=== PATIENT | male | born 1955 | race Caucasian/White ===

== ENCOUNTER → 2018-12-16 13:17 | Outpatient (CLI) | payer OTHER, SELFPAY ==
[2018-12-16 12:46] VITALS: BMI 27.8
--- NOTE | 2018-12-16 13:20 | CT_ITS ---
STUDY: LOW DOSE CT LUNG CANCER SCREENING REASON FOR EXAM: Male, 63 years old. History of 46 years of smoking three-quarter pack per day. RADIATION DOSAGE (If Supplied By Facility): CTDIvol = ( 3.02 ) mGy, DLP = ( 106.84 ) mGycm TECHNIQUE: No contrast was administered. Low dose technique was utilized (average mAS-38 and kVp 120). 1.25 mm axial source images with a slice interval of 1.25-mm were reconstructed in lung windows. 2.5 mm axial source images with a slice interval of 2.5-mm were reconstructed in lung windows. 5.0 mm axial source images with a slice interval of 5.0-mm were reconstructed in soft tissue windows. Nodule measured using lung windows on PACS and/or independent workstation with automated measurement of minimum and maximum diameter. Nodule measurement reported as average diameter rounded to the nearest whole number. Growth is defined as an increase ins size of greater than 1.5 mm. COMPARISON: None. NODULES: No suspicious nodules are seen. Emphysema: Mild degree of emphysematous changes. Bullous changes in the posterior medial segment of the right lower lobe. Findings suggestive of focal scarring in the lingular segment of the left upper lobe. Aorta: Atherosclerotic calcification of the aortic arch. Coronary arteries: Coronary calcification. Mediastinal nodes: Small benign-appearing mediastinal lymph nodes. Other chest and abdominal findings: Degenerative changes of the thoracic spine. CT/Low Dose CT Lung Screening IMPRESSION: Lung-RADS category 2 - Continue annual screening with LDCT in 12 months. IMPORTANT NOTES FOR USE: ACR Lung-RADS Version 1.0 Assessment Categories Release Date: July 27, 2013 Category: Coded 0-4 bases on nodule(s) with highest degree of suspicion. Negative screen is defined as categories 1 and 2; a positive screen is defined as categories 3 and 4. Category 3 and 4A nodules that are unchanged on interval CT should be coded as category 2, and individuals returned to screening in 12 months. Category 4X: Category 3 or 4 nodules with additional imaging findings that increase the suspicion of lung cancer, such as spiculation, GGN that doubles in size in 1 year, enlarged lymph notes, etc. Category Modifiers: S (significant finding unrelated to lung cancer) and C (prior history of treated lung cancer) may be added to the 0-4 Lung-RADS Electronically Signed: Rajendra Persaud, at 14:08 EDT , Service support ,
== END ==
PROVIDERS: Family Provider Family Medicine; PCP Family Medicine; Referring Provider Nurse Practitioner Family; Visit Provider Nurse Practitioner Family
DX: Z12.2 Encounter for screening for malignant neoplasm of respiratory organs (principal); Z87.891 Personal history of nicotine dependence
CPT/HCPCS: G0297

== ENCOUNTER 2019-03-05 06:05 | Day surgery (SDC) | payer OTHER, SELFPAY ==
[2019-02-11 08:21] VITALS: BMI 27.8
--- NOTE | 2019-02-11 09:54 | HP_ITS ---
Intake Vital Signs 02/11/19 Body Mass Index (BMI) 27.8 02/11/19 Height 5 ft 7 in 02/11/19 Weight: 176 lb 02/11/19 Body Mass Index (BMI) 27.6 02/11/19 Blood Pressure 147/90 H 02/11/19 Blood Pressure Location Rt brachial 02/11/19 Blood Pressure Position Sitting 02/11/19 Respiratory Rate 18 02/11/19 Pulse Rate 77 02/11/19 Pulse Source Monitor 02/11/19 Temperature 98.5 F 02/11/19 Temperature Source Oral 02/11/19 Pulse Ox 95 02/11/19 Oxygen Delivery Method room air Intake Visit Reasons: Umbilical Hernia Chief Complaint: herniated navel Cyber Policy And Strategy Planner Required: No Is patient in pain?: No Allergies No Known Allergies Allergy (Verified 02/11/19 08:20) Medications jdegmylwgnd-wckatjdziug-zv-mineral#3 375 mg-300 mg-25 mg-0.5 mg tablet tab PO tab 12/10/18 [History Confirmed 02/11/19] multivitamin tablet 1 tab PO DAILY 12/10/18 [History Confirmed 02/11/19] aspirin 325 mg tablet 162 mg PO .QOD tab 12/16/18 [History Confirmed 02/11/19] PFSH Medical History Excessive sputum (Acute) GERD (gastroesophageal reflux disease) (Acute) Hearing problem (Acute) History of tinnitus (Acute) Hyperlipidemia (Acute) Chronic cough (Chronic) Surgical History History of hernia repair (Acute) Hx of tonsillectomy (Acute) Family History Mother Anemia Bowel disease Colon cancer Hyperlipidemia Father Heart disease Grandfather Diabetes Social History (Updated 02/11/19 @ 09:54 by Ralph Maharaj MD) Smoking Status: Current every day smoker tobacco type: cigarettes Tobacco: How many years used: 45 Electronic Cigarette Use: not used second hand exposure: Yes quit status: has quit before counseling given: provider counseling alcohol intake: current alcohol intake frequency: 0-2 drinks per day substance use type: does not use what type of physical activity do you participate in: walking frequency: daily HPI HPI HPI: RACHELLE LUND, is a 64 M who presents to the office today for HPI HPI Surgical H&P: Yes HPI: RACHELLE LUND, is a 64 M who presents to the office today for Umbilical hernia. The patient reports that he has had umbilical hernia for several years. He reports that it is getting larger, more painful. ROS General General: No weight change, appetite, fatigue, colon cancer, breast cancer or weakness HEENT HEENT: No difficulty swallowing, eye injury, eye surgery, swollen glands or hoarseness Endo Endocrine: No thyroid disease, diabetes mellitus, thyroid cancer, Hair loss, heat intolerance or cold intolerance Skin Skin: No rash or changing moles Breast Breast: No left breast lump, right breast lump, nipple discharge, breast pain, abnormal mammogram, abnormal US or breast enlargement Musc Musculoskeletal: Yes arthritis; no back problems, rheumatoid arthritis, gout or joint pain Cardio Cardiovascular: No murmur, pacemaker, heart disease, atrial fibrillation, high blood pressure, heart attack, heart stent, palpitations, shortness of breat with exertion or chest pain Psych Psychiatric: No depression, anxiety or hearing voices Resp Respiratory: No shortness of breath, No sleep apnea, Yes cough, No COPD, No asthma, No emphysema, No wheezing Gastro Gastrointestinal: No abdominal pain, No nausea or vomiting, No diarrhea, No constipation, No blood in stool, No acid reflux, No hemorrhoids, No ulcers, No gallbladder problem, No black,tarry stools Dane Hematologic: Yes blood thinners, No blood disorders, No bleeding, No anemia, No blood clots Neuro Neurologic: No system reviewed and no additional complaints, except as docu, No as per HPI, No abnormal walking, No abnormal hearing, No abnormal movements, No abnormal speech, No behavioral changes, No burning sensations, No confusion, No seizure-like activity, No unsteadiness, No dizziness, No localized weakness, No frequent falls, No headache(s), No lack of coordination, No loss of vision, No memory loss, No numbness, No other visual disturbances, No radiating pain, No restless legs, No sensory deficit, No fainting, No tingling, No tremor(s), No weakness, No other Exam Const General: cooperative Orientation: alert, oriented x3 Chest Breast Palpation: No nipple discharge Resp Effort & Inspection: normal respiratory effort Auscultation: clear to auscultation bilaterally Cardio Rate: regular rate Rhythm: regular rhythm Heart Sounds: no murmurs GI Inspection: non-distended Palpation: soft, hernia umbilical, nontender Assessment & Plan Problems 1. Tobacco abuse Z72.0 2. Umbilical hernia without obstruction and without gangrene K42.9 Plan The patient is a small reducible umbilical hernia. I discussed repair with him. I discussed open and laparoscopic repair. Given the size I feel that it may be small enough to fix with sutures. I discussed that if it was more than 1 cm in diameter I would repair with sutures if it is larger I would have to place a mesh. I believe it is too small to warrant laparoscopic surgery. The patient is in agreement and would like to proceed with open umbilical hernia repair. I discussed the risks of bleeding, infection, underlying bowel injury. The patient would like to proceed. Ralph Maharaj MD Pager: [facility] [address] [place] [address], [address] [place] [address] Office: Coding Level of Care Code Off vis,new,level 3 Diagnoses Tobacco abuse Z72.0 Umbilical hernia without obstruction and without gangrene K42.9 ??Obstruction and gangrene presence: without obstruction or gangrene 02/11/19 0954 <Electronically signed by Ralph olivier MD> Date _ Ralph Maharaj MD I have re-examined the patient. There are no clinical changes since date of exam.
[2019-03-05] VITALS (7 sets, daily range): BP systolic 132–157; BP diastolic 82–101; PULSE 68–80; RESP 16; TEMP 36.6–36.8; O2SAT 93–96; BMI 26.7
--- NOTE | 2019-03-05 06:11 | EKG12_ITS ---
Test Reason : PRE-OP Blood Pressure : / mmHG Vent. Rate : 069 BPM Atrial Rate : 069 BPM P-R Int : 156 ms QRS Dur : 086 ms QT Int : 412 ms P-R-T Axes : 021 059 037 degrees QTc Int : 441 ms Normal sinus rhythm Normal ECG No previous ECGs available Confirmed by LETICIA HICKEY, JACKI ([id number]), news video editor IBAN BENEDICT ([id number]) on 03/08/2019 10:36:18 AM Referred By: Ralph Maharaj Confirmed By:HUSSAIN KELLY MD
[2019-03-05 06:32] LABS: Hematocrit 43.5 % (40-54); Hemoglobin 14.7 g/dL (13.0-16.5); Mean Corp Hgb Conc 33.8 g/dL (32-36); Mean Corpuscular Hgb 30.8 pg (27.0-32.0); Mean Platelet Vol. 9.6 fl (6.2-12.0); Platelet Count 289 K/mm3 (150-450); RBC Distribution Width CV 12.7 % (11.6-14.6); RBC Distribution Width SD 42.4 fl (35.1-43.9); Red Blood Count 4.78 M/mm3 (4.6-6.2); White Blood Count 7.9 K/mm3 (4.4-11.0)
[2019-03-05] MEDS: Lactated Ringers 1,000 ML 100 ML IV (06:43)
[2019-03-05] MEDS: Cefazolin 2 GM in 0.9% Normal Saline 100 ML IV (07:28)
[2019-03-05] MEDS: Bupivacaine Mpf 0.5% 30 ML VIAL (07:56)
--- NOTE | 2019-03-05 07:58 | PCM.OPRPT ---
Problem List (1) Umbilical hernia Status: Acute Report of Operation Date of Procedure: 03/05/19 Pre-Operative Diagnosis: Umbilical hernia Post-Operative Diagnosis: Same Surgery/Procedure Performed:: Umbilical hernia repair Description of Procedure: The patient was brought back to the operating room and general anesthesia was induced. The abdomen was prepped and draped in usual sterile fashion. A curvilinear incision was marked superior to the umbilicus and the hernia was reduced. This proposed incision line was injected with lidocaine and Marcaine mixture. Next an incision was made with a scalpel and using Adson's the skin was elevated and the umbilical stalk was dissected free from the hernia sac. The hernia sac was reduced and its adhesions taken down with electrocautery until clean fascia was surrounding. The defect was less than 1 cm. Three 2-0 PDS sutures were used in an interrupted fashion to close the defect transversely. Next the umbilical stalk was tacked to the fascia using a 3-0 Vicryl suture. The cavity was irrigated and suctioned dry. The skin was closed with a running 4-0 Monocryl suture and Steri-Strips and a bandage. An umbilical cottonball and bandage were placed. Patient tolerated procedure well was brought to PACU in stable condition. Grafts/Implants Used: No mesh used - Admit VTE Documentation VTE Mechan Device Prophylaxis: SCD's
--- NOTE | 2019-03-05 08:02 | DCINST_ITS ---
Discharge Diet: Light diet - advance as tolerated Discharge Activity: Return to Normal Activity, May Not Drive - for 2-3 days or while taking narcotic pain meds., May Shower - with the bandage in place 1-2 days after surgery. Lifting Restrictions: 20 pounds for 3 weeks. Additional Activity Instructions:: Climbing stairs is fine, walking is encouraged. Sitting in bed may be uncomfortable. Sitting up using your lateral muscles (sitting up sideways) is usually more comfortable. Do not drive, work heavy equipment of sign legal documents for 24 hours. If your hernia repair was an ingunial repair, you may have scrotal swelling, an ice pack and/or athletic support can provide more comfort. Pain medications may cause nausea, you should typically eat light foods as you take your pain medications. Pain medications may also cause constipation. If you have difficulty with this, discuss with your doctor. Call your doctor if your incision/area has: Continuous Slow Oozing, Sudden Increased Bleeding, Increased Pain/ Swelling, Increased Redness, Foul Smelling Discharge Call your doctor if you observe: Fever of 101 or Higher Suture Line Care: Avoid Pulling/Pushing, Avoid Pinching/Bending Change Dressing in (Days):: 3 - Leave steri-strips for 1 week. May protect with a guaze bandaid. Cleanse incision/area with: Keep Dressing Clean & Dry Allergies/Adverse Reactions: Allergies No Known Allergies Allergy (Verified 03/05/19 06:40) Medications to take at Discharge gitzlubciho-wkdggrwkjqv-yk-mineral#3 375 mg-300 mg-25 mg-0.5 mg tablet 1 tab PO DAILY tab 12/10/18 multivitamin tablet 1 tab PO DAILY 12/10/18 aspirin 325 mg tablet 180 mg PO .QOD tab 12/16/18 Oxycodone HCl/Acetaminophen [Percocet 5/325] 1 - 2 tablet PO Q4H PRN PRN 3 Days #20 tablet 03/05/19 The following prescriptions were given: Oxycodone HCl/Acetaminophen [Percocet 5/325] 1 - 2 tablet PO Q4H PRN PRN 3 Days #20 tablet PRN Reason: Pain Transmission Status: Sent to [facility] Primary Care Physician: John Platt DO [Primary Care Provider] - Test Results: Test results from this visit will be discussed in further detail at your follow- up appointment, if applicable. Please Follow Up With: Ralph Maharaj MD When: Please call to schedule 2 week follow up appointment. [phone]
== END 2019-03-05 09:30 | disposition home or self-care (01) ==
LOC: SDC 06:08 → AC 06:08
PROVIDERS: Anesthesiology; Family Provider Family Medicine; PCP Family Medicine; Referring Provider Surgery; Visit Provider Surgery
PROC: (CPT 49585; principal; 2019-03-05 07:15)
DX: K42.9 Umbilical hernia without obstruction or gangrene (principal); F17.210 Nicotine dependence, cigarettes, uncomplicated; Z79.82 Long term (current) use of aspirin
CPT/HCPCS: 00750; 49585; 36415; 85027; 93005; J7120

== ENCOUNTER → 2019-12-22 14:27 | Outpatient (CLI) | payer OTHER, SELFPAY ==
[2019-08-04 09:39] VITALS: BMI 26.7
--- NOTE | 2019-12-22 14:27 | CT_ITS ---
STUDY: LOW DOSE CT LUNG CANCER SCREENING REASON FOR EXAM: Male, 64 years old. LUNG CANCER SCREENING. / PPD X 50 YEARS. RADIATION DOSAGE (If Supplied By Facility): CTDIvol = ( 2.55 ) mGy, DLP = ( 94.74 ) mGycm TECHNIQUE: No contrast was administered. Low dose technique was utilized (average mAS-38 and kVp 120). 1.25 mm axial source images with a slice interval of 1.25-mm were reconstructed in lung windows. 2.5 mm axial source images with a slice interval of 2.5-mm were reconstructed in lung windows. 5.0 mm axial source images with a slice interval of 5.0-mm were reconstructed in soft tissue windows. Nodule measured using lung windows on PACS and/or independent workstation with automated measurement of minimum and maximum diameter. Nodule measurement reported as average diameter rounded to the nearest whole number. Growth is defined as an increase ins size of greater than 1.5 mm. COMPARISON: Comparison is made with prior study dated 12/16/2018. NODULES: No suspicious nodules are seen. Emphysema: Stable mild degree of emphysematous changes. Bullous changes are seen in the posteromedial segment of the right lower lobe. Stable mild degree of scarring in the anterior aspect of the lingular segment of the left upper lobe. Endobronchial lesion: None Aorta: Atherosclerotic calcific plaques at the level of the aortic arch. Coronary arteries: Coronary artery calcifications. Mediastinal nodes: Small benign-appearing mediastinal lymph nodes. Other chest and abdominal findings: Degenerative changes of the thoracic spine. CT/Low Dose CT Lung Screening IMPRESSION: Lung-RADS category 2 - Continue annual screening with LDCT in 12 months. IMPORTANT NOTES FOR USE: ACR Lung-RADS Version 1.0 Assessment Categories Release Date: July 27, 2013 Category: Coded 0-4 bases on nodule(s) with highest degree of suspicion. Negative screen is defined as categories 1 and 2; a positive screen is defined as categories 3 and 4. Category 3 and 4A nodules that are unchanged on interval CT should be coded as category 2, and individuals returned to screening in 12 months. Category 4X: Category 3 or 4 nodules with additional imaging findings that increase the suspicion of lung cancer, such as spiculation, GGN that doubles in size in 1 year, enlarged lymph notes, etc. Category Modifiers: S (significant finding unrelated to lung cancer) and C (prior history of treated lung cancer) may be added to the 0-4 Lung-RADS Electronically Signed: Rajendra Persaud, at 15:19 EDT , Service support ,
== END ==
PROVIDERS: PCP Family Medicine; Referring Provider Nurse Practitioner Family; Visit Provider Nurse Practitioner Family
DX: F17.209 Nicotine dependence, unspecified, with unspecified nicotine-induced disorders (principal); Z12.2 Encounter for screening for malignant neoplasm of respiratory organs
CPT/HCPCS: G0297

== ENCOUNTER → 2021-01-18 10:24 | Outpatient (CLI) | payer MEDICARE, SELFPAY ==
--- NOTE | 2021-01-18 10:30 | RAD_ITS ---
STUDY: X-RAY - LEFT SHOULDER REASON FOR EXAM: Left shoulder pain, swelling/lump at superior aspect of the shoulder. TECHNIQUE: 4 view(s) of the shoulder. COMPARISON: None. FINDINGS: Normal glenohumeral articulation. There is mild acromioclavicular arthrosis with a small ossicle at the superior aspect of the joint. Normal acromion. Normal humeral head and visualized proximal humerus. There is a small intra-articular body at the inferior aspect of the glenoid. Normal visualized pulmonary apex. RAD/Shoulder min 2 Views IMPRESSION: Mild acromioclavicular arthrosis. Small glenohumeral intra-articular body. Electronically Signed: Rios Zacarias MD at 11:07 EDT Tel , Service support ,
== END ==
PROVIDERS: PCP Family Medicine; Referring Provider Family Medicine; Visit Provider Family Medicine
DX: M25.412 Effusion, left shoulder (principal)
CPT/HCPCS: 73030

== ENCOUNTER → 2021-01-24 13:11 | Outpatient (CLI) | payer MEDICARE, SELFPAY ==
--- NOTE | 2021-01-24 13:12 | CT_ITS ---
STUDY: LOW DOSE CT LUNG CANCER SCREENING REASON FOR EXAM: Male, 66 years old. Lung cancer screening -- 35 pack year history; current smoker;asymptomatic RADIATION DOSAGE (If Supplied By Facility): CTDIvol = ( 3.02 ) mGy, DLP = ( 117.77 ) mGycm TECHNIQUE: No contrast was administered. Low dose technique was utilized (average mAS-38 and kVp 120). 1.25 mm axial source images with a slice interval of 1.25-mm were reconstructed in lung windows. 2.5 mm axial source images with a slice interval of 2.5-mm were reconstructed in lung windows. 5.0 mm axial source images with a slice interval of 5.0-mm were reconstructed in soft tissue windows. Nodule measured using lung windows on PACS and/or independent workstation with automated measurement of minimum and maximum diameter. Nodule measurement reported as average diameter rounded to the nearest whole number. Growth is defined as an increase ins size of greater than 1.5 mm. COMPARISON: Comparison is made with prior study dated 12/22/2019. NODULES: No pulmonary nodules are seen. Emphysema: Hyperinflation. Stable minimal scarring in the anterior aspect of the lingular segment of the left upper lobe. Endobronchial lesion: None Aorta: Calcific plaques at the region of the aortic arch. Coronary arteries: Coronary artery calcification. Heart: Unremarkable Pulmonary artery: Unremarkable Mediastinal nodes: Small benign-appearing mediastinal lymph nodes. Other chest and abdominal findings: Diffuse degenerative changes of the thoracic vertebrae. CT/Low Dose CT Lung Screening IMPRESSION: Lung-RADS category 2 - Continue annual screening with LDCT in 12 months. IMPORTANT NOTES FOR USE: ACR Lung-RADS Version 1.1 Assessment Categories Release Date: 2018 Category: Coded 0-4 bases on nodule(s) with highest degree of suspicion. Negative screen is defined as categories 1 and 2; a positive screen is defined as categories 3 and 4. Category 3 and 4A nodules that are unchanged on interval CT should be coded as category 2, and individuals returned to screening in 12 months. Category 4X: Category 3 or 4 nodules with additional imaging findings that increase the suspicion of lung cancer, such as spiculation, GGN that doubles in size in 1 year, enlarged lymph notes, etc. Category Modifiers: S (significant finding unrelated to lung cancer) Electronically Signed: Rajendra Persaud MD at 13:52 EDT , Service support ,
== END ==
PROVIDERS: PCP Family Medicine; Referring Provider Nurse Practitioner Family; Visit Provider Nurse Practitioner Family
DX: F17.210 Nicotine dependence, cigarettes, uncomplicated (principal); Z12.2 Encounter for screening for malignant neoplasm of respiratory organs
CPT/HCPCS: 71271

== ENCOUNTER → 2022-10-30 | Outpatient (CLI) | payer MEDICARE, OTHER, SELFPAY ==
[2022-10-30 17:46] LABS: ALB/GLOB Ratio 1.1 RATIO (0.9-2.4); AST(SGOT) 27 U/L (15-37); Alanine Aminotransfer ALT/SGPT 45 U/L (16-61); Albumin, Serum 3.6 g/dL (3.2-5.0); Alkaline Phosphatase 81 U/L (45-117); Anion Gap 4 (5-15); BUN 17 mg/dL (7-18); BUN/Creat Ratio 15.9 RATIO (10-20); Calcium,Total 8.6 mg/dL (8.5-10.1); Chloride 107 mmol/L (98-107); Cholesterol 238 mg/dL (200); Creatinine, Serum 1.07 mg/dL (0.70-1.30); EST Glomerular Filtration Rate 73 mL/min (>60); Est Glom Filt Rate - Afr Amer 89 mL/min (>60); Globulin 3.2 g/dL (2.2-4.2); Glucose 93 mg/dL (74-106); High Density Lipoprotein 47 mg/dL; PSA,Total- Diagnostic 2.57 ng/mL (0.0-4.0); Potassium 4.4 mmol/L (3.5-5.1); Protein, Total 6.8 g/dL (6.4-8.2); Sodium Level 138 mmol/L (136-145); Triglycerides 276 mg/dL; Very Low Density Lipoprotein 55 mg/dL (5-40)
== END | disposition home or self-care (01) ==
LOC: BIMLAB 15:03
PROVIDERS: PCP Family Medicine; Visit Provider Family Medicine
DX: N40.0 Benign prostatic hyperplasia without lower urinary tract symptoms (principal); E78.5 Hyperlipidemia, unspecified
CPT/HCPCS: 36415; 80053; 80061; 84153

== ENCOUNTER → 2022-11-13 | Outpatient (CLI) | payer MEDICARE, OTHER, SELFPAY ==
--- NOTE | 2022-11-13 07:01 | CT_ITS ---
STUDY: LOW DOSE CT LUNG CANCER SCREENING REASON FOR EXAM: Male, 67 years old. SMOKER. 1/2 PPD X 52 YEARS RADIATION DOSAGE (If Supplied By Facility): CTDIvol = ( 3.02 ) mGy, DLP = ( 109.48 ) mGycm TECHNIQUE: No contrast was administered. Low dose technique was utilized (average mAS-38 and kVp 120). 1.25 mm axial source images with a slice interval of 1.25-mm were reconstructed in lung windows. 2.5 mm axial source images with a slice interval of 2.5-mm were reconstructed in lung windows. 5.0 mm axial source images with a slice interval of 5.0-mm were reconstructed in soft tissue windows. COMPARISON: Comparison is made with prior study dated January 24, 2021. NODULES: There is a new 1.6 cm x 1.2 cm nodule in the medial aspect of the left lung apex as seen on axial image #23 and coronal image #143. Emphysema: Linear scarring in the anterior medial aspect of the left upper lobe. Hyperinflation. Endobronchial lesion: None Aorta: Mild atherosclerotic plaque formation of the aortic arch. CORONARY ARTERIES: Coronary artery calcification is seen. Heart: Unremarkable. Pulmonary artery: Unremarkable. Mediastinal nodes: Small benign-appearing mediastinal lymph nodes. Other chest and abdominal findings: CT/Low Dose CT Lung Screening IMPRESSION: Lung-RADS category 4A - Screening at 3 months with LDCT or evaluation with PET/CT may be used. IMPORTANT NOTES FOR USE: ACR Lung-RADS Version 1.1 Assessment Categories Release Date: 2018 Category: Coded 0-4 bases on nodule(s) with highest degree of suspicion. Negative screen is defined as categories 1 and 2; a positive screen is defined as categories 3 and 4. Category 3 and 4A nodules that are unchanged on interval CT should be coded as category 2, and individuals returned to screening in 12 months. Category 4X: Category 3 or 4 nodules with additional imaging findings that increase the suspicion of lung cancer, such as spiculation, GGN that doubles in size in 1 year, enlarged lymph notes, etc. Category Modifiers: S (significant finding unrelated to lung cancer) Electronically Signed: Rajendra Persaud MD at 15:15 EDT ,
== END | disposition home or self-care (01) ==
PROVIDERS: PCP Family Medicine; Referring Provider Family Medicine; Visit Provider Family Medicine
DX: Z12.2 Encounter for screening for malignant neoplasm of respiratory organs (principal); Z87.891 Personal history of nicotine dependence
CPT/HCPCS: 71271

== ENCOUNTER → 2022-12-14 | Outpatient (CLI) | payer MEDICARE, OTHER, SELFPAY ==
[2022-12-14 17:57] LABS: Bacteria 0 SEEN /hpf (None Seen); Mucous, Urine 0 SEEN /hpf (<or=2+); Red Blood Cells-Urine 0 SEEN /hpf (0-5); Squamous Epithelial Cells - UA 0 SEEN /hpf (0-5); White Blood Cells 0 SEEN /hpf (0-5)
[2022-12-14 18:19] LABS: Color, Urine Yellow (Yellow); Glucose, Dipstick Normal (Normal); Ketone-Dipstick Negative (Negative); Leukocyte Esterase-Dipstick Negative /ul (Negative); Nitrite-Dipstick Negative (Negative); Occult Blood-Urine 10 /ul (Negative); Protein-Dipstick 30 mg/dl (Negative); Specific Gravity, Urine 1.015 (1.002-1.030); Urine Bilirubin Dipstick Negative (Negative); Urine Clarity Clear (Clear); Urine Urobilinogen Normal (Normal)
== END | disposition home or self-care (01) ==
PROVIDERS: PCP Family Medicine; Visit Provider Physician Assistant Surgical
DX: R30.0 Dysuria (principal)
CPT/HCPCS: 81001; 87086; 87088

== ENCOUNTER → 2022-12-26 | Outpatient (CLI) | payer MEDICARE, OTHER, SELFPAY ==
[2022-12-26 14:50] LABS: Bacteria 0 SEEN /hpf (None Seen); Mucous, Urine 0 SEEN /hpf (<or=2+); Red Blood Cells-Urine 0 SEEN /hpf (0-5); Squamous Epithelial Cells - UA 0 SEEN /hpf (0-5); White Blood Cells 0 SEEN /hpf (0-5)
[2022-12-26 16:57] LABS: Color, Urine Yellow (Yellow); Glucose, Dipstick Normal (Normal); Ketone-Dipstick Negative (Negative); Leukocyte Esterase-Dipstick Negative /ul (Negative); Nitrite-Dipstick Negative (Negative); Occult Blood-Urine Negative /ul (Negative); Protein-Dipstick Negative (Negative); Urine Bilirubin Dipstick Negative (Negative); Urine Clarity Clear (Clear); Urine Urobilinogen Normal (Normal)
== END | disposition home or self-care (01) ==
LOC: LABSPEC 14:49
PROVIDERS: PCP Family Medicine; Referring Provider Family Medicine; Visit Provider Family Medicine
DX: N39.0 Urinary tract infection, site not specified (principal); A49.9 Bacterial infection, unspecified
CPT/HCPCS: 81001

== ENCOUNTER → 2023-01-05 | Outpatient (CLI) | payer MEDICARE, OTHER, SELFPAY ==
--- NOTE | 2023-01-05 11:15 | US_ITS ---
INDICATION: air in the urine EXAMINATION: Ultrasound US Kidney(s) complete (eg, kidneys and bladder) TECHNIQUE: Pascual scale and color doppler images were obtained of the kidneys. COMPARISON: No comparison imaging received FINDINGS: RIGHT KIDNEY: Right kidney measures 11 x 4.3 x 5.4 cm with cortical thickness of 1.7 cm. There is no hydronephrosis. No shadowing calculus, focal lesion or perinephric collection demonstrated. LEFT KIDNEY: Left kidney measures 10 x 5.7 x 5.4 cm with cortical thickness of 2.2 cm. There is no hydronephrosis. Anechoic, partially exophytic left renal cyst measures 3.6 x 2.8 x 2.9 cm. No shadowing calculus or perinephric collection demonstrated. URINARY BLADDER: Unremarkable with bilateral ureteral jets visualized. Prevoid urinary bladder volume 440 mL with mild residual post void of 19 mL. No intraluminal filling defects or significant bladder wall thickening. US/Kidney and Bladder IMPRESSION: Simple appearing 3.6 cm left renal cyst. Otherwise, no acute findings. Electronically Signed: Lefty Pretty MD at 1:06 EDT ,
== END | disposition home or self-care (01) ==
LOC: US 11:14
PROVIDERS: PCP Family Medicine; Referring Provider Family Medicine; Visit Provider Family Medicine
DX: R93.89 Abnormal findings on diagnostic imaging of other specified body structures (principal)
CPT/HCPCS: 76770

== ENCOUNTER → 2023-01-15 | Outpatient (CLI) | payer MEDICARE, OTHER, SELFPAY | END | disposition home or self-care (01) | LOC: LABSPEC 16:34 | PROVIDERS: PCP Family Medicine; Referring Provider Urology; Visit Provider Urology | DX: N30.01 Acute cystitis with hematuria (principal) | CPT/HCPCS: 87086; 87088; 87186 ==

== ENCOUNTER → 2023-01-25 | Outpatient (CLI) | payer MEDICARE, OTHER, SELFPAY ==
--- NOTE | 2023-01-25 08:31 | CT_ITS ---
STUDY: CT ABDOMEN AND PELVIS WITH AND WITHOUT CONTRAST REASON FOR EXAM: Male, 68 years old. GROSS HEMATURIA RADIATION DOSAGE (If Supplied By Facility): CTDIvol = ( 16.61 ) mGy, DLP = ( 2486.80 ) mGycm TECHNIQUE: Transaxial images were obtained from the dome of the diaphragm to the symphysis pubis without oral contrast. IV 100mL Isovue-[id number] was administered. Sagittal and coronal images were reconstructed. Study was performed first without IV contrast and with IV contrast and delayed images also obtained Individualized dose optimization techniques were used for this CT. COMPARISON: None. FINDINGS: The visualized lung bases are unremarkable. The visualized portions of the heart are within normal limits. Liver is unremarkable aside from scattered subcentimeter simple cysts. Normal gallbladder and extrahepatic biliary system. Normal spleen. Normal pancreas. Normal bilateral adrenal glands. No obstructive uropathy, or suspicious solid renal lesion, there is a simple left renal cysts measuring 3.5 x 1.5 cm. No specific follow-up needed. Normal visualized stomach. Normal small intestine. Scattered colonic diverticula, particularly in the sigmoid colon without CT evidence of acute diverticulitis. However, an underlying lesion within the sigmoid cannot be completely excluded. The appendix is visualized and appears normal. Appendix seen on coronal reconstructed image 56, series 601 There is diffuse atherosclerotic calcification of the abdominal aorta, without a demonstrated aneurysm. Normal inferior vena cava. Normal retroperitoneum. Bladder distends normally, there is air within the bladder which may be due to recent catheterization. There is also subtle pericystic inflammatory stranding suggesting cystitis may be present. Normal abdominal wall. There are diffuse degenerative changes of the visualized lumbar spine, and pelvis. CT/CT Abd/Pelvis W/WO Contrast IMPRESSION: Subtle inflammatory changes around the periphery of the bladder suggesting cystitis. Please correlate with urinalysis No obstructive uropathy or suspicious solid renal lesion, there is a simple 3.5 cm left renal cyst. No specific follow-up needed Colonic diverticula, vertically in the sigmoid colon and underlying lesion cannot be excluded. No CT evidence of acute diverticulitis Scattered simple hepatic cysts, no specific follow-up needed Electronically Signed: Cj Pacheco MD at 14:59 EDT ,
[2023-01-25 08:55] LABS: CREATININE FINGERSTICK 1.4 mg/dL (0.70-1.30)
== END | disposition home or self-care (01) ==
LOC: CT 08:30
PROVIDERS: PCP Family Medicine; Referring Provider Urology; Visit Provider Urology
DX: R31.0 Gross hematuria (principal)
CPT/HCPCS: 74178; Q9967

== ENCOUNTER → 2023-02-14 | Outpatient (CLI) | payer MEDICARE, OTHER, SELFPAY ==
--- NOTE | 2023-02-14 08:20 | CT_ITS ---
STUDY: CT CHEST WITHOUT CONTRAST REASON FOR EXAM: Male, 68 years old. Nodule in the chest RADIATION DOSAGE (If Supplied By Facility): CTDIvol = ( 3.02 ) mGy, DLP = ( 110.98 ) mGycm TECHNIQUE: Transaxial imaging was performed without the administration of intravenous contrast material. Multiplanar coronal and sagittal images were reformatted. Individualized dose optimization techniques were used for this CT. COMPARISON: Comparison is made with prior study dated November 13, 2022. FINDINGS: CHEST The lungs are normal. Previously seen left apical nodule is not seen at this time. There is no demonstrated pleural abnormality. There are calcifications of the coronary arteries. There are small lymph nodes within the mediastinum, which are normal in size and morphology most compatible with reactive lymph hyperplasia. Normal hilar regions. Normal unenhanced pulmonary arteries. Normal aorta arch and descending thoracic aorta. There are multi-level degenerative changes of the thoracic spine. There is no demonstrated abnormality of the visualized upper abdomen. CT/Chest without Contrast IMPRESSION: The previously seen left apical nodule is not seen at this time. Electronically Signed: Rajendra Persaud MD at 9:47 EST ,
== END | disposition home or self-care (01) ==
LOC: CT 08:20
PROVIDERS: PCP Family Medicine; Referring Provider Family Medicine; Visit Provider Family Medicine
DX: F17.209 Nicotine dependence, unspecified, with unspecified nicotine-induced disorders (principal)
CPT/HCPCS: 71250

== ENCOUNTER → 2023-11-04 | Outpatient (CLI) | payer MEDICARE, OTHER, SELFPAY ==
--- NOTE | 2023-11-04 07:45 | RAD_ITS ---
STUDY: X-RAY - ORBITS REASON FOR EXAM: Male, 68 years old. HX METAL TO EYE ,,PRE MRI TECHNIQUE: 2 view(s) of the orbits were obtained. COMPARISON: None. FINDINGS: Normal bilateral orbits without a metallic orbital foreign body. Normal visualized facial bones. Normal paranasal sinuses. The soft tissue structures are unremarkable. RAD/Orbits for Foreign Body IMPRESSION: No demonstrated metallic orbital foreign body. The patient is cleared for an MRI examination. Electronically Signed: Rajendra Persaud MD at 9:07 EDT ,
--- NOTE | 2023-11-04 08:00 | MRI_ITS ---
STUDY: MRI LUMBAR SPINE WITHOUT CONTRAST REASON FOR EXAM: Male, 68 years old. SPONDYLOSIS TECHNIQUE: Standardized fat and water weighted pulse sequences were obtained in the sagittal and axial planes. COMPARISON: X-ray 10/29/2023 FINDINGS: T12-L1: Normal endplates. Normal disc height, hydration and morphology. Normal bilateral facet joints. Normal central canal and bilateral lateral recesses. Normal bilateral intervertebral neural foramina. Normal lumbar lordosis. There is no substantial scoliosis. Normal conus medullaris that terminates at the T12/L1. L1-2: Mild bilobed disc protrusion produces mild spinal stenosis and mild bilateral neural foraminal stenosis. L2-3: Mild bilobed disc protrusion produces mild spinal stenosis and mild bilateral neural foraminal stenosis. L3-4: Normal endplates. Normal disc height, hydration and morphology. Normal bilateral facet joints. Normal central canal and bilateral lateral recesses. Normal bilateral intervertebral neural foramina. L4-5: Mild bilateral facet hypertrophy and ligament flavum hypertrophy. Moderate broad disc protrusion produces moderate spinal stenosis with moderate bilateral lateral recess stenosis with abutment of the L5 nerve roots bilaterally and mild bilateral neural foraminal stenosis. Furthermore, there is a superimposed superiorly extending right paracentral disc extrusion contributing to right lateral recess stenosis. L5-S1: Mild bilateral facet hypertrophy and ligament flavum hypertrophy. 5 mm retrolisthesis of L5 on S1 with a mild broad disc protrusion produces moderate spinal stenosis and moderate bilateral neural foraminal stenosis with abutment of the exiting L5 nerve roots bilaterally. Normal visualized sacral ala. Normal visualized paraspinous soft tissue structures. MRI/Spine Lumbar (Routine) IMPRESSION: Multilevel degenerative changes, as described above. Electronically Signed: Ronald Cotton MD at 9:24 EDT ,
== END | disposition home or self-care (01) ==
PROVIDERS: PCP Family Medicine; Referring Provider Anesthesiology Pain Medicine; Visit Provider Anesthesiology Pain Medicine
DX: M47.16 Other spondylosis with myelopathy, lumbar region (principal)
CPT/HCPCS: 70030; 72148

== ENCOUNTER 2023-11-20 08:00 | Outpatient (RCR) | payer MEDICARE, OTHER, SELFPAY ==
--- NOTE | 2023-11-18 08:59 | HP.PTEVAL_ITS ---
Patient's Visit Information Visit Information Visit Information: RACHELLE LUND is a 68 year old M referred to Physical Therapy by Dr. Micheline Mahan MD with a diagnosis of Back pain/leg pain. Date of Evaluation: 11/18/23 Physical Therapist: Shashi Morrell, DPT, OCS, CSCS Visit Plan Frequency: 2x /Week Duration: 4-6 Weeks Plan: 2x/week for 3-6 weeks for 1. R hip mobs belted adn distraction adn PROM 2. teach and progress hip strength, core strength, and LB ROM for senior living HEP management with pics each session. work on hip extension with gait R. Teach for HEP: quad stretech 30 5x and SLR hip extension 3x10 dailys and hip abd ROM10x and skfc 10x 2x/day Subjective Subjective: PCP sent to [facility] for R hip pain who sent to [facility] for pain in R LB and hip. Got an injection in his back to help see what is back vs hip and it helped 80% 3 weeks ago. [facility] has ordered MRI and will f/u with him regarding that MRI. Wants to put MYA off until april if possible and R leg is smaller vs. R. Has lateral hip pain and cannot run. Has had problems with hip for 10 yrs and worse 5 months ago. has LBP in r upper buttock and has bone spurs and DDD in LB. Sleep is interrupted until injection but no longer. Retired from factory work. Retired 2012. Hobbies: hunting /fishing, yard work and he can do all of them but not as much as he used. to. basic ADLs: all I but hard to use R leg lifting to put socks on Pain R LB: Pain Intensity (Out of 10): 0 Pain Intensity Range: 0 and 5 R lateral leg and hip: Pain Intensity (Out of 10): 2 Pain Intensity Range: 0 and 3 Comment: worse with use worse with use.: Pain Intensity (Out of 10): 0 Objective Objective: R antalgia in gait avoiding hip extension. trasnfers I, steps reciprocal but pain R descending hip laterally. R hip aROM very limited in rotations vs L and painful 40 R er and 50 L, IR 5 R adn 10 L. flexion 100 R and 110 L LB AROM is mod limited in ext and flexion and SB, some discomfort with R SB only slightly. knee and ankle AROM WFL. Tightness obvious in R quad and psoas. Ext Hip ROM limited to 5 and L 15. R quad atrophied compared to L. hip strength rotation 3+ R and 4- L, flexion 4- B, extension 3+ R and 4- L, abduction 3+ B. knee adn ankle strengtrh 4+ B. + R hip scour adn JULIÁN and FADDIR. - SLump and - SLR today Balance/Special Test Scores Lower Extremity Functional Score: 44 Goals Goal 1:: I appropriate hip and core strength adn LB ROM and hip stretching to manage OA Goal Time Frame: 4-6 Weeks Goal 2:: Pain in buttock abolished and lateral hip 505 better to 2/10 at worst Goal Time Frame: 4-6 Weeks Goal 3:: walk without antalgia Goal Time Frame: 4-6 Weeks Goal 4:: LEFS 50 Goal Time Frame: 4-6 Weeks Rehabilitation Potential Physical Therapy Diagnosis: R hip and LB stiffness and pain limiting comfortable funciton Rehabilitation Potential: Fair Anticipated Interventions Text: Thank you for the opportunity to evaluate your patient. For Medicare and Medicare HMO plans, please review the plan of care and approve it. It will need to be FAXED BACK to us at [phone] for Medicare purposes. For Medicare only, by signing this I certify the plan of care. Please let me know if there are questions or concerns regarding this plan of care. Physician Signature: Date:
--- NOTE | 2024-01-10 07:16 | HP.PT.NRP ---
Patient Information Patient Information: RACHELLE LUND was seen in my office for initial evaluation on 11/18/23. The following Plan of Care was established for this patient: POC Established Initial Frequency: 2x /Week Initial Duration: 4-6 Weeks Last Seen Last Seen: This patient was last seen in our office 11/20/23. Pertinent comments regarding their Physical therapy will appear below: Pt seen two visits of POC but did not schedule or attend any further visits. At this point, it has been over 6 weeks and i will discontinue due to nonattendance. At this point I will be discontinuing this patient from physical therapy. I would be happy to see this patient again in the future if found appropriate by the physician. Thank you! Shashi Morrell, DPT, OCS, CSCS Balance/Gait/Functional tests Balance/Special Test Scores Lower Extremity Functional Score: 44
== END 2023-11-20 19:00 | disposition home or self-care (01) ==
LOC: PT 08:00
PROVIDERS: PCP Family Medicine; Referring Provider Anesthesiology Pain Medicine; Visit Provider Anesthesiology Pain Medicine
DX: M54.9 Dorsalgia, unspecified (principal); M79.606 Pain in leg, unspecified
CPT/HCPCS: 97110; 97140; 97161

== ENCOUNTER → 2024-01-21 | Outpatient (CLI) | payer MEDICARE, SELFPAY ==
--- NOTE | 2024-01-21 13:40 | CT_ITS ---
EXAM: CT CHEST, LUNG CANCER SCREENING WITHOUT INTRAVENOUS CONTRAST CLINICAL INDICATION: Lung cancer screening -- and gt;20 pk yr hx;current smoker;asymptomatic TECHNIQUE: Helically acquired images were obtained of the chest without intravenous contrast using low dose (LDCT) lung cancer screening protocol. This CT exam was performed using one or more of the following dose reduction techniques: automated exposure control, adjustment of the mA and/or kV according to patient size, and/or use of iterative reconstruction technique. COMPARISON: CT Lung Cancer Screening dated 11/13/2022 FINDINGS: LUNGS AND PLEURAL SPACES: No evidence of a lung mass or suspicious pulmonary nodule. Stable localized thickening along the left major fissure. No pleural effusion or thickening. No pneumothorax. HEART: Normal. No pericardial effusion. Normal heart size. Mild coronary artery calcification. MEDIASTINUM: Normal. No mediastinal or hilar adenopathy. Esophagus is unremarkable. No hiatal hernia. THYROID: Normal. No thyroid nodules or calcification. BONES/JOINTS: No suspicious lytic or blastic abnormality. VASCULATURE: No aortic aneurysm. LYMPH NODES: Normal. No enlarged lymph nodes. CT/Low Dose CT Lung Screening IMPRESSION: No evidence of a lung mass or suspicious pulmonary nodule. No interval change. Lung-RADS score: 1 - Negative. Recommend continued annual screening with a low-dose CT (LDCT) in 12 months. Electronically Signed: Shay Hay MD at 17:01 EDT ,
== END | disposition home or self-care (01) ==
LOC: CT 13:40
PROVIDERS: PCP Family Medicine; Referring Provider Nurse Practitioner Family; Visit Provider Nurse Practitioner Family
DX: Z12.2 Encounter for screening for malignant neoplasm of respiratory organs (principal); Z87.891 Personal history of nicotine dependence
CPT/HCPCS: 71271

== ENCOUNTER → 2024-04-13 | Outpatient (CLI) | payer MEDICARE, SELFPAY ==
--- NOTE | 2024-04-13 11:38 | RAD_ITS ---
STUDY: X-RAY - RIGHT KNEE REASON FOR EXAM: Male, 69 years old. RIGHT KNEE PAIN TECHNIQUE: 2 views of the right knee. COMPARISON: None. FINDINGS: Normal visualized distal femur. Normal visualized proximal tibia and fibula. Normal proximal tibiofibular articulation. There is no demonstrated fracture. Normal medial femorotibial compartment. Normal lateral femorotibial compartment. Normal patellofemoral articulation. There is a tiny joint effusion. There are mild atherosclerotic calcifications. RAD/Knee 1 or 2 Views IMPRESSION: Tiny joint effusion. No demonstrated fracture. Electronically Signed: Reji Velasquez MD at 15:50 EST ,
== END | disposition home or self-care (01) ==
PROVIDERS: PCP Family Medicine; Referring Provider Anesthesiology Pain Medicine; Visit Provider Anesthesiology Pain Medicine
DX: M17.11 Unilateral primary osteoarthritis, right knee (principal)
CPT/HCPCS: 73560

== ENCOUNTER → 2024-05-27 | Outpatient (CLI) | payer MEDICARE, SELFPAY ==
[2024-05-27 13:04] LABS: ALB/GLOB Ratio 1.5 RATIO (0.9-2.4); AST(SGOT) 24 U/L (<=37); Alanine Aminotransfer ALT/SGPT 16 U/L (<=46); Albumin, Serum 4.3 g/dL (3.4-4.8); Alkaline Phosphatase 84 U/L (40-129); Anion Gap 12 (5-15); BUN 17 mg/dL (4-19); BUN/Creat Ratio 18.7 RATIO (10-20); Calcium 9.6 mg/dL (7.6-11.0); Carbon Dioxide 23.7 mmol/L (22.0-29.0); Chloride 102 mmol/L (96-108); Cholesterol 258 mg/dL (<=200); Creatinine, Serum 0.9 mg/dL (0.8-1.3); EST Glomerular Filtration Rate 90 (>60); Globulin 2.9 g/dL (2.2-4.2); Glucose 94 mg/dL (70-99); High Density Lipoprotein 40 mg/dL; Low Density Lipoprotein Calc. 189 mg/dL; Potassium 4.4 mmol/L (3.3-5.1); Protein, Total 7.2 g/dL (5.9-8.4); Sodium Level 138 mmol/L (133-145); Total Bilirubin 0.73 mg/dL (0.00-1.30); Triglycerides 147 mg/dL; Very Low Density Lipoprotein 29 mg/dL (5-40)
== END | disposition home or self-care (01) ==
LOC: BIMLAB 09:00
PROVIDERS: PCP Family Medicine; Referring Provider Family Medicine; Visit Provider Family Medicine
DX: E78.5 Hyperlipidemia, unspecified (principal)
CPT/HCPCS: 36415; 80053; 80061

== ENCOUNTER → 2025-02-16 | Outpatient (CLI) | payer MEDICARE, SELFPAY ==
--- NOTE | 2025-02-16 12:43 | CT_ITS ---
PROCEDURE: LOW DOSE CT LUNG SCREENING 02/16/2025 REASON FOR EXAM: LUNG CANCER SCREENING Patient has smoked half a pack per day for 50 years. Cough. TECHNIQUE: Procedure Code: [id number] Modality: CT Procedure: LOW DOSE CT LUNG SCREENING Coronal and Sagittal reconstruction series were provided. One or more dose reduction techniques were used (e.g., Automated exposure control, adjustment of the mA and/or kV according to patient size, use of iterative reconstruction technique). REFERENCE LINK: [email or web address] Lung-RADS RADIATION DOSE SUMMARY: CTDlvol: 3.02 mGy DLP: 115.88 mGycm COMPARISON: January 21, 2024. FINDINGS: PULMONARY NODULES: (Only nodules >3mm are reported) Nodules described below are on series 1 unless otherwise specified. Pulmonary Nodules: No suspicious pulmonary nodules are seen. Hardware:None Lymph Nodes:No abnormal lymph nodes are present. Heart and Vasculature:The heart is nonenlarged. Coronary Artery Calcifications: Present Lungs and Airways: Mild emphysematous changes are present. Pleura:No pleural effusion. Upper Abdomen:Unremarkable Bones:Degenerative changes of the thoracic spine. CT/Low Dose CT Lung Screening IMPRESSION: No abnormal pulmonary nodules are seen. Hyperinflation and mild degree of COPD. Coronary artery calcification (CAC) is is present Lung-RADS Category: 2 BENIGN (BASED ON IMAGING FEATURES OR INDOLENT BEHAVIOR). RECOMMEND 12-MONTH SCREENING LDCT. Other Significant Findings: Reading Location: [id number]
--- OUTSIDE RECORDS SUMMARY | 2025-02-16 16:40 | XMS RPT_ITS | CCD ---
Author Organization [facility] CliniSyar Care Team Providers Care Director Nurses' Registry Name Role Phone ANGELICA GREENBERG (PILOT CAN ROUTER) Unavailable Unavailable ANGELICA GREENBERG (PILOT CAN ROUTER) Unavailable Unavailable Dr. John Platt Primary Care Provider [phone] Dr. John Platt Attending Provider [phone] Dr. John Platt Referring Provider KEVIN Meadows Attending Provider Unavailable DYLAN Moffett Attending Provider DYLAN Moffett Attending Provider [phone] John Platt Primary Care Provider [phone] Dr. John Platt Attending Provider [phone] John Platt Referring Provider [phone] KEVIN Meadows Attending Provider Unavailable DYLAN Moffett Attending Provider Dr. John Platt DO Primary Care Provider Dr. John Platt DO Referring Provider [phone] Dr. Enoc Davis DO Attending Provider Dr. Skip Friedman MD Attending Provider Dr. Micheline Mahan MD Attending Provider [phone] Micheline Mahan MD Referring Provider Dr. John Platt DO Attending Provider John Platt Primary Care Unavailable Irlanda PROOFING MACHINE OPERATOR, Blanca Attending Unavailable Irlanda PROOFING MACHINE OPERATOR, Blanca Referring Unavailable John Platt Referring Unavailable Enoc Davis Attending Unavailable John Platt Primary Care Unavailable Brown, John R Primary Care Unavailable Brown, John R Attending Unavailable Brown, John R Referring Unavailable Brown, John R Primary Care Unavailable Skip Friedman Attending Unavailable Brown, John R Referring Unavailable Brown, John R Primary Care Unavailable Brown, John R Attending Unavailable Brown, John R Referring Unavailable Brown, John R Primary Care Unavailable Micheline Mahan Attending Unavailable Micheline Mahan Referring Unavailable Medications Current Medications Medication Drug Class(es) Dates Sig (Normalized) Sig (Original) aspirin 325 mg oral tablet (10 sources) Platelet Aggregation Inhibitor, Nonsteroidal Anti-inflammatory Drug Start: 03-31-2024 take 0.5 tablet by mouth every other day Aspirin 325 mg tablet Active 180 mg PO .QOD March 31, 2024 1:29pm 1/2 tablet every other day Start: 12-16-2018 End: 03-31-2024 Aspirin 325 mg tablet Discon tinued 180 mg PO .QOD December 16, 2018 12:00am March 31, 2024 1:30pm Start: 12-16-2018 take 180 mg by mouth every other day Aspirin Active 180 MG PO .QOD December 15, 2018 11:00pm Pgicwzimqhd-Taisahkiw-Vo-Min 3 068-219-04-0.5 mg tablet (1 source) Start: 12-10-2018 Gmkfivhvubx-Msviekxxz-Kz-Min 3 886-401-28-0.5 mg tablet Active 1 {tbl} PO DAILY December 10, 2018 12:00am rksffmyasvy-hlnlpmfurwn-eu-m iner al#3 375 mg-300 mg-25 mg-0.5 mg tablet (8 sources) Start: 12-10-2018 take 1 tablet by mouth once daily fnohxdizxgv-jeoemdioztt-ya-mine ral#3 375 mg-300 mg-25 mg-0.5 mg tablet Active 1 TABLET PO DAILY December 09, 2018 11:00pm Start: 12-10-2018 take 1 tablet by mouth once daily pkqjpflhpwr-ondwqrnrkec-dx-mineral#3 375 mg-300 mg-25 mg-0.5 mg tablet Active 1 TABLET PO DAILY December 10, 2018 12:00am meloxicam 15 mg oral tablet (11 sources) Nonsteroidal Anti-inflammatory Drug Start: 05-27-2024 take 1 tablet by mouth once daily Meloxicam 15 mg tablet Active 15 mg PO DAILY May 27, 2024 9:57am Start: 09-17-2023 End: 03-31-2024 take 1 tablet by mouth once daily Meloxicam 15 mg tablet Discontinued 15 mg PO DAILY September 17, 2023 12:00am March 31, 2024 1:29pm Start: 01-18-2021 End: 10-30-2022 take 1 tablet by mouth once daily Meloxicam (Mobic) 15 mg tablet Discontinued 15 mg PO DAILY January 18, 2021 12:00am October 30, 2022 2:39pm Multivitamin preparation (8 sources) Start: 12-10-2018 take 1 tablet by mouth once daily Multivitamin Active 1 TABLET PO DAILY December 09, 2018 11:00pm Start: 12-10-2018 take 1 tablet by peyman th once daily Multivitamin Active 1 TABLET PO DAILY December 10, 2018 12:00am Multivitamin tablet (1 source) Start: 12-10-2018 Multivitamin t ablet Active 1 {tbl} PO DAILY December 10, 2018 12:00am Turmeric Root Extract 500 mg tablet (1 source) Start: 05-27-2024 take 1 tablet by mouth once daily Turmeric Root Extract 500 mg tablet Active 500 mg PO daily May 27, 2024 1:00am Completed/Discontinued Medications Medication Drug Class(es) Dates Sig (Normalized) Sig (Original) acetaminophen 325 mg / oxyCODONE hydrochloride 5 mg oral tablet (9 sources) Opioid Agonist Start: 03-05-2019 End: 03-18-2019 Oxycodone-Acetamino phen 1 TABLET tablet Discontinued 1 - 2 {tbl} PO EVERY 4 HOURS NEEDED as needed for Pain 18 06March 05, 2019 March 07, 2019 1:00am March 18, 2019 1:09am Start: 03-05-2019 End: 03-18-2019 take 1 tablet by mouth every four hours as needed Oxycodone-Acetaminophen Discontinued 1 - 2 TABLET PO EVERY 4 HOURS NEEDED 18 06March 05, 2019 March 18, 2019 12:09am ciprofloxacin 500 mg oral tablet (7 sources) Quinolone Antimicrobial Start: 12-14-2022 End: 12-19-2022 take 1 tablet by mouth twice daily Ciprofloxacin Hcl 500 mg tablet Discontinued 500 mg PO TWICE A DAY 01 03December 14, 2022 12:00am December 18, 2022 12:00am Christie 20th, 2023 12:06am doxycycline hyclate 100 mg oral capsule (10 sources) Tetracycline-class Drug Start: 06-05-2023 End: 06-06-2023 take 2 capsules by mouth once Doxycycline Hyclate 100 mg capsule Discontinued 200 mg PO ONCE 2 1 June 05, 2023 1:00am June 05, 2023 1:00am June 06, 2023 1:05am Start: 08-04-2019 End: 01-18-2021 take 1 tablet by mouth twice daily Doxycycline Hyclate 100 mg tablet Discontinued 100 mg PO TWICE A DAY August 04, 2019 12:00am January 18, 2021 9:02am red yeast rice 600 mg oral capsule (9 sources) Start: 10-30-2022 End: 09-17-2023 take 1 capsule by mouth once daily Red Yeast Rice 600 mg capsule Discontinued 1200 mg PO DAILY October 30, 2022 12:00am September 17, 2023 1:23pm give with meal/snack Start: 10-30-2022 take 1200 mg by mout h once daily Red Yeast Rice Active 1200 MG PO DAILY October 29, 2022 11:00pm give with meal/snack tumeric (1 source) Start: 09-17-2023 End: 03-31-2024 tumeric Discontinued Not Applicable September 17, 2023 12:00am March 31, 2024 1:30pm ubidecarenone 400 mg oral capsule (1 source) Start: 10-09-2023 End: 03-31-2024 take 10 capsules by mouth once daily Coenzyme Q10 400 mg capsule Discontinued 400 mg PO DAILY October 09, 2023 12:00am March 31, 2024 1:29pm Problems Active Problems Problem Classification Problem Date Documented Date Episodic/Chronic Abdominal hernia (9 sources) Umbilical hernia; Translations: [Umbilical hernia without obstruction or gangrene] 03-05-2019 Episodic Disorders of lipid metabolism (19 sources) Hyperlipidemia; Translations: [Hyperlipidemia, unspecified] Onset: 06-10-2024 03-19-2019 Chronic Esophageal disorders (9 sources) Gastroesophageal reflux disease; Translations: [Gastro-esophageal reflux disease without esophagitis] 03-19-2019 Chronic Genitourinary symptoms and ill-defined conditions (16 sources) Pneumatouria; Translations: [Other symptoms and signs involving the genitourinary system] 12-26-2022 Episodic Osteoarthritis (5 sources) Osteoarthritis of right hip joint; Translations: [Unilateral primary osteoarthritis, right hip] Onset: 03-31-2024 10-09-2023 Chronic Other ear and sense organ disorders (9 sources) Hearing disorder; Translations: [Unspecified hearing loss, unspecified ear] 03-19-2019 Chronic Other ear and sense organ disorders (9 sources) Impacted cerumen; Translations: [Impacted cerumen, right ear] 01-18-2021 Episodic Other lower respiratory disease (17 sources) Chronic cough; Translations: [Chronic cough] 03-19-2019 Episodic Other lower respiratory disease (9 sources) Copious sputum; Translations: [Abnormal sputum] 03-19-2019 Episodic Other nervous system disorders (9 sources) H/O: hearing problem; Translations: [Personal history of other diseases of the nervous system and sense organs] 03-19-2019 Episodic Other non-traumatic joint disorders (10 sources) Hip pain; Translations: [Pain in right hip] 10-30-2022 Episodic Other non-traumatic joint disorders (9 sources) Effusion of acromioclavicular joint; Translations: [Effusion, left shoulder] 01-18-2021 Episodic Other non-traumatic joint disorders (8 sources) Pain in right hip; Translations: [Pain in joint, pelvic region and thigh] 10-30-2022 Episodic Other screening for suspected conditions (not mental disorders or infectious disease) (9 sources) Patient encounter status; Translations: [Encounter for screening for malignant neoplasm of respiratory organs] 01-24-2021 Episodic Residual codes; unclassified (9 sources) History of repair of umbilical hernia; Translations: [Other specified postprocedural states] 03-19-2019 Episodic Comment on above: 03/19/19 Residual codes; unclassified (9 sources) History of hernia repair; Translations: [Other specified postprocedural states] 03-19-2019 Episodic Comment on above: x2 Screening and history of mental health and substance abuse codes (10 sources) Cigarette smoker ; Translations: [Personal history of nicotine dependence] Onset: 02-05-2025 10-31-2022 Episodic Spondylosis; intervertebral disc disorders; other back problems (6 sources) Lumbar spondylosis; Translations: [Spondylosis without myelopathy or radiculopathy, lumbar region] Onset: 03-31-2024 10-09-2023 Chronic Substance-related disorders (18 sources) Tobacco dependence, continuous; Translations: [Nicotine dependence, unspecified, with unspecified nicotine-induced disorders] 01-24-2021 Chronic Superficial injury; contusion (1 source) Tick bite; Translations: [Insect bite (nonvenomous) of lower back and pelvis, initial encounter] 06-05-2023 Episodic Urinary tract infections (17 sources) Urinary tract infection, site not specified; Translations: [Urinary tract infection, site not specified] 12-14-2022 Episodic Past or Other Problems Problem Classification Problem Date Documented Da te Episodic/Chronic Other gastrointestinal disorders (1 source) Diarrhea, unspecified; Translations: [Diarrhea, unspecified] Onset: 03-14-2017 Episodic Spondylosis; intervertebral disc disorders; other back problems (6 sources) Lumbar radiculopathy; Translations: [Radiculopathy, lumbar region] Onset: 03-31-2024 10-29-2023 Episodic Results Test Name Value Interpretation Reference Range Facility BUN/creatinine ratioOrdered By: John Platt on 05-27-2024 Urea nitrogen/Creatinine [Mass ratio] 18.7 mg/mg 10 [facility] Bilirubin, totalOrdered By: John Platt on 05-27-2024 Bilirubin [Mass/Vol] 0.73 mg/dL Normal 0.00-1.30 [facility] Comment on above: Performed By: #### L 500.4100, L500.4050 #### [facility] [address] [place], [address] Calculated very low density lipoprotein (VLDL) cholesterol measurementOrdered By: John Platt on 05-27-2024 VLDL Cholesterol 29 mg/dL 5-40 [facility] Carbon dioxide measurementOr dered By: John Platt on 05-27-2024 CO2 [Moles/Vol] 23.7 mmol/L Normal 22.0-29.0 [facility] Comment on above: Performed By: #### L 500.4100, L500.4050 #### [facility] [address] [place], [address] Chloride measurementOrdered By: John Platt on 05-27-2024 Chloride [Moles/Vol] 102 mmol/L Normal 96-108 [facility] Comment on above: Performed By: #### L 500.4100, [id number] #### [facility] [address] [place], [address] Comprehensive Metabolic Prof ilon 05-27-2024 ALK PHOS 84 U/L Normal 40-129 [facility] Comment on above: Performed By: #### L 500.4100, L500.4050 #### [facility] [address] [place], [address] BUN/CRE 18.7 RATIO Normal 10-20 [facility] Comment on above: Performed By: #### L 500.4100, L500.4050 #### [facility] [address] [place], [address] GFR/1.73 sq M.predicted among non-blacks MDRD (S/P/Bld) [Vol rate/Area] 90 mL/min/{1.73_m2} Normal >60 [facility] Comment on above: Result Comment: mL/m in/1.73m2 CKD-EPI Creatinine Equation (2020) Performed By: #### L 500.4100, L500.4050 #### [facility] [address] [place], [address] T PROT 7.2 g/dL Normal 5.9-8.4 [facility] Comment on above: Performed By: #### L 500.4100, L500.4050 #### [facility] [address] [place], [address] Comprehensive Metabolic Prof ilOrdered By: John Platt on 05-27-2024 AST [Catalytic activity/Vol] 24 U/L Normal <=37 [facility] Comment on above: Performed By: #### L 500.4100, L500.4050 #### [facility] [address] [place], [address] GFR/1.73 sq M.predicted uyen g non-blacks MDRD (S/P/Bld) [Vol rate/Area]Ordered By: John Platt on 05-27-2024 Estimated GFR (MDRD) Non-Af Amer 90 >60 [facility] Comment on above: mL/min/1.73m2 CKD-EP I Creatinine Equation (2020) Internal Medicine Office Vis iton 05-27-2024 Internal Medicine Office Visit [facility] [address] [place] [address] [place] [address] OFFICE VISIT Date of Service: 05/27/24 MR#: [id number] Acct: [id number] Name: JUDAH BENITEZ Rep #: [id number] : 1955 Provider: Dr. John dong, DO Age/Sex: 69/M Location[facility] Status: Signed Intake Vital Signs 01/21/24 13:16 05/27/24 08:34 Height 5 ft 7 in 5 ft 7 in Weight: 179 lb BMI 28.0 BP 120/78 Blood Pressure Location Lt brachial Position Sitting Respiration 16 Pulse 88 Pulse Source Monitor Temp 97.8 F Temp Source Temporal Pulse Oximetry (%) 99 Oxygen Delivery Method room air Intake Visit Reasons: yearly physical Chief Complaint: YEARLY PHYSICAL Is patient in pain?: Yes (RIGHT HIP, KNEE ) Pain scale (1-10): 2 Allergies No Known Allergies Allergy (Verified 03/31/24 12:28) Medications ???Medication ???Instructions ???Recorded ???Confirmed ???Type glucosamine-chondroitin- mv-mineral#3 1 tab PO DAILY 12/10/18 History 375 mg-300 mg-25 mg-0.5 mg tablet multivitamin 1 tab PO DAILY 12/10/18 05/27/24 H istory aspirin 325 mg tablet 180 mg PO .QOD 03/31/24 05/27/24 H istory meloxicam 15 mg tablet 15 mg PO DAILY #30 tabs 05/27/24 0 05/27/24 Rx turmeric root extract 500 mg tablet 500 mg PO QDAY 05/27/24 5 History Have you fallen in the past year?: No PFSH Medical History Tobacco use disorder, continuous Encounter for screening for malignant neoplasm of lung in current smoker with 30 pack year history or greater GERD (gastroesophageal reflux disease) Excessive sputum Chronic cough History of tinnitus Hyperlipidemia Hearing problem Surgical History Hx of umbilical hernia repair History of hernia repair Hx of tonsillectomy Family History Mother Anemia Bowel disease Colon cancer Hyperlipidemia Father Heart disease Grandfather Diabetes Social History Smoking Status: Current every day smoker (1/2 ppd ) tobacco type: cigarettes Tobacco: How many years used: 45 Electronic Cigarette Use: not used second hand exposure: Yes quit status: has quit before alcohol intake: current alcohol intake frequency: 0-2 drinks per day substance use type: does not use what type of physical activity do you participate in: walking frequency: daily HPI HPI Chief Complaint: YEARLY PHYSICAL Details: JUDAH BENITEZ, is a 69 M who presents to the office today for an annual physical exam. Most of his complaints have to do with the musculoskeletal system and he is seen an orthopedic surgeon for his hip pain a spinal surgeon for his back pain pain management for his back pain and he has had a couple of physical therapy visits for his back pain. Except for his musculoskeletal complaints he has not really had any complaints at all. He has had a colonoscopy which showed no evidence of a fistula. He had a small adenoma that was removed. ROS Const Constitutional: No body ache, chills, excessive sweating, fatigue, fever(s), frequent falls, headache(s), snoring, weakness, sleep problems or change in appetite Eyes Eyes: No blurry vision, change in vision or Light sensitivity ENT ENT: No abnormal hearing, ear or mastoid pain, tinnitus, nasal congestion, nasal discharge, headache(s), neck pain or sore throat Resp Respiratory: No cough, shortness of breath, snoring or wheezing Cardio Cardiology: No chest pain at rest, chest pain with exertion, excessive sweating, shortness of breath, dyspnea on exertion, lightheadedness, orthopnea or palpitations Gastro GI: No abdominal pain, change in bowel habits, constipation, cramping, diarrhea or nausea/dyspepsia Genitourinary Male: No burning urination, painful urination, urinary incontinence or urinary frequency Musc Musculoskeletal: Positive for joint pain and other (RIGHT HIP, KNEE, LEG PAIN); No abnormal gait, back pain, limited range of motion, muscle weakness, neck pain or numbness Skin Skin: No dry skin, redness, lesions, itchy eyes, rash or wounds Neuro Neurology: No abnormal gait, abnormal hearing, weakness, frequent falls, headache(s), memory loss or numbness Psych Psychiatric: No anxiety, No change in appetite, No depression, No memory loss, No panic attacks and No Thoughts of harming yourself/Others Endo Endocrine: No cold intolerance, excessive sweating, fatigue, flushing, heat intolerance, increased thirst/drinking or increased hunger Aller/Imm Allergy/Immunologic: No itchy eyes, seasonal allergy symptoms, hives or wheezing Exam Const General: healthy appearing, well developed and not in acute distress Orientation: alert, awake and oriented x (more content not included)... Normal [facility] LDL calc ser/plasOrdered By: John Platt on 05-27-2024 LDL Cholesterol, Calculated 189 mg/dL [facility] Comment on above: Dokibvknhd=337-794 m g/dL & Higher Ypej=395 mg/dL or greater Lipid Profileon 05-27-2024 CHOL:HDL 6.50 Normal [facility] Comment on above: Performed By: #### L 500.4100, L500.4050 #### [facility] [address] [place], [address] Cholesterol in LDL [Mass/Vol] 189 mg/dL Normal [facility] Comment on above: Result Comment: Bord uwbuqd=519-299 mg/dL Higher Vpgy=144 mg/dL or greater Performed By: #### L 500.4100, L500.4050 #### [facility] [address] [facility] [address] Cholesterol in VLDL [Mass/Vol] 29 mg/dL Normal 5-40 [facility] Comment on above: Performed By: #### L 500.4100, L500.4050 #### [facility] [address] [place], [address] Screening total cholesterol/ high density lipoprotein (HDL) cholesterol ratioOrdered By: John Lc on 05-27-2024 Cholesterol.total/Lexi sterol in HDL [Mass ratio] 6.50 {ratio} [facility] Serum creatinine measurement (mass/volume)Ordered By: John Platt on 05-27-2024 Creatinine [Mass/Vol] 0.9 mg/dL Normal 0.8-1.3 [facility] Comment on above: Performed By: #### L 500.4100, L500.4050 #### [facility] [address] [place], [address] Serum globulin measurementOr dered By: John Lc on 05-27-2024 Globulin (S) [Mass/Vol] 2.9 g/dL Normal 2.2-4.2 [facility] Comment on above: Performed By: #### L 500.4100, L500.4050 #### [facility] [address] [place], [address] Serum glucose measurement (m ass/volume)Ordered By: John Lc on 05-27-2024 Glucose [Mass/Vol] 94 mg/dL Normal 70-99 [facility] Comment on above: Performed By: #### L 500.4100, L500.4050 #### [facility] [address] [place], [address] Serum or plasma alanine gupta otransferase (ALT) measurementOrdered By: John Lc on 05-27-2024 ALT [Catalytic activity/Vol] 16 U/L Normal <=46 [facility] Comment on above: Performed By: #### L 500.4100, L500.4050 #### [facility] [address] [place], [address] Serum or plasma albumin xiao urement (mass/volume)Ordered By: John Platt on 05-27-2024 Albumin [Mass/Vol] 4.3 g/dL Normal 3.4-4.8 [facility] Comment on above: Performed By: #### L 500.4100, L500.4050 #### [facility] [address] [place], [address] Serum or plasma albumin/glob ulin mass ratioOrdered By: John Platt on 05-27-2024 Albumin/Globulin [Mass ratio] 1.5 {ratio} Normal 0.9-2.4 [facility] Comment on above: Performed By: #### L 500.4100, L500.4050 #### [facility] [address] [place], [address] Serum or plasma alkaline aravind sphatase measurementOrdered By: John Platt on 05-27-2024 ALP [Catalytic activity/Vol] 84 U/L 40-129 [facility] Serum or plasma anion gap de termination (moles/volume)Ordered By: John Platt on 05-27-2024 Anion gap [Moles/Vol] 12 mmol/L Normal 5-15 [facility] Comment on above: Performed By: #### L 500.4100, L500.4050 #### [facility] [address] [place], [address] Serum or plasma calcium xiao urement (mass/volume)Ordered By: John Platt on 05-27-2024 Calcium [Mass/Vol] 9.6 mg/dL Normal 7.6-11.0 [facility] Comment on above: Performed By: #### L 500.4100, L500.4050 #### [facility] [address] [place], [address] Serum or plasma cholesterol in HDL measurement (mass/volume)Ordered By: John Platt on 05-27-2024 Cholesterol in HDL [Mass/Vol] 40 mg/dL Normal [facility] Comment on above: National Cholesterol Education Program (NCEP) guidelines:<40 mg/dL: Low HDL-cholesterol (major risk factor for CHD)>= 60 mg/dL: High HDL-cholesterol (negative risk factor for CHD)HDL-cholesterol is affected by a number of factors, e.g. smoking, exercise, hormones, sex and age. Result Comment: Nadine onal Cholesterol Education Program (NCEP) guidelines: <40 mg/dL: Low HDL-cholesterol (major risk factor for CHD) >= 60 mg/dL: High HDL-cholesterol (negative risk factor for CHD) HDL-cholesterol is affected by a number of factors, e.g. smoking, exercise, hormones, sex and age. Performed By: #### L 500.4100, L500.4050 #### [facility] [address] [facility] [address] Serum or plasma cholesterol measurement (mass/volume)Ordered By: John Platt on 05-27-2024 Cholesterol [Mass/Vol] 258 mg/dL High <=200 [facility] Comment on above: Cholesterol level, D esirable <200 mg/dLBorderline high cholesterol 200-239 mg/dLHigh cholesterol >=240 mg/dLRecommendations of the NCEP Adult Treatment Panel for the following risk-cutoff thresholds for the [place] population. Result Comment: Chol esterol level, Desirable <200 mg/dL Borderline high cholesterol 200-239 mg/dL High cholesterol >=240 mg/dL Recommendations of the NCEP Adult Treatment Panel for the following risk-cutoff thresholds for the [place] population. Performed By: #### L 500.4100, L500.4050 #### [facility] [address] [place], [address] Serum or plasma potassium me asurementOrdered By: John Platt on 05-27-2024 Potassium [Moles/Vol] 4.4 mmol/L Normal 3.3-5.1 [facility] Comment on above: Performed By: #### L 500.4100, L500.4050 #### [facility] [address] [facility] [place], [address] Serum or plasma sodium measu rement (moles/volume)Ordered By: John Platt on 05-27-2024 Sodium [Moles/Vol] 138 mmol/L Normal 133-145 [facility] Comment on above: Performed By: #### L 500.4100, L500.4050 #### [facility] [address] [place], [address] Serum or plasma urea nitroge n measurement (mass/volume)Ordered By: John Platt on 05-27-2024 Urea nitrogen [Mass/Vol] 17 mg/dL Normal 4-19 [facility] Comment on above: Performed By: #### L 500.4100, L500.4050 #### [facility] [address] [place], [address] Total proteinOrdered By: Jeff Platt on 05-27-2024 Protein [Mass/Vol] 7.2 g/dL 5.9-8.4 [facility] Triglycerides measurementOrd ered By: John Platt on 05-27-2024 Triglyceride [Mass/Vol] 147 mg/dL Normal [facility] Comment on above: The drugs N-Acetylcy steine and Metamizole may falsely depress this assay. Normal range: <150 mg/dLBorderline High: 150-199 mg/dLHigh: 200-499 mg/dLVery High: >500 mg/dL Result Comment: The drugs N-Acetylcysteine and Metamizole may falsely depress this assay. Normal range: <150 mg/dL Borderline High: 150-199 mg/dL High: 200-499 mg/dL Very High: >500 mg/dL Performed By: #### L 500.4100, L500.4050 #### [facility] [address] [place], [address] Knee 1 or 2 Viewson 04-13-19 Knee 1 or 2 Views [facility] Imaging Services [address] [place], [place] [address] Knee 1 or 2 Views MR#: [id number] Acct: [id number] Name: JUDAH BENITEZ Rep #: [id number] : 1955 M 69 From: Reji Velasquez MD PCP: Dr. John Platt, DO Status: REG CLI Study: Knee 1 or 2 Views Date of Exam: 04/13/24 Exam# [id number] Ordering Dr: Micheline Mahan MD [id number] STUDY: X-RAY - RIGHT KNEE REASON FOR EXAM: Male, 69 years old. RIGHT KNEE PAIN TECHNIQUE: 2 views of the right knee. COMPARISON: None. FINDINGS: Normal visualized distal femur. Normal visualized proximal tibia and fibula. Normal proximal tibiofibular articulation. There is no demonstrated fracture. Normal medial femorotibial compartment. Normal lateral femorotibial compartment. Normal patellofemoral articulation. There is a tiny joint effusion. There are mild atherosclerotic calcifications. RAD/Knee 1 or 2 Views IMPRESSION: Tiny joint effusion. No demonstrated fracture. Electronically Signed: Reji Velasquez MD at 15:50 EST Reading Location ID and State: [facility] / [place] , Service support , CC: Dr. Micheline Mahan MD; Dr. John Platt DO Qc Tech: Signed Normal [facility] Orthopedic Visit Reporton Orthopedic Visit Report [facility] [address] [place] [address] OFFICE VISIT Date of Service: 03/31/24 MR#: [id number] Acct: [id number] Name: JUDAH BENITEZ Rep #: [id number] : 1955 Provider: Dr. Skip Friedman MD Age/Sex: 69/M Location: [facility] Status: Signed Intake Vital Signs 01/21/24 13:16 Height 5 ft 7 in Weight: 178 lb 8 oz BMI 27.9 BP 119/76 Blood Pressure Location Lt brachial Position Sitting Respiration 18 Pulse 85 Pulse Source Monitor Temp 98.9 F Temp Source Temporal Pulse Oximetry (%) 96 Oxygen Delivery Method room air Intake Visit Reasons: LUMBAR SPINE Chief Complaint: lumbar spine Is patient in pain?: Yes (lumbar spine ) Pain scale (1-10): 3 Allergies No Known Allergies Allergy (Verified 03/31/24 12:28) Medications ???Medication ???Instructions ???Recorded ???Confirmed ???Type glucosamine-chondroitin- mv-mineral#3 1 tab PO DAILY 12/10/18 03/31/24 History 375 mg-300 mg-25 mg-0.5 mg tablet multivitamin 1 tab PO DAILY 12/10/18 03/31/24 History aspirin 325 mg tablet 180 mg PO .QOD 03/31/24 03/31/24 History Have you fallen in the past year?: No PFSH Medical History Tobacco use disorder, continuous Encounter for screening for malignant neoplasm of lung in current smoker with 30 pack year history or greater GERD (gastroesophageal reflux disease) Excessive sputum Chronic cough History of tinnitus Hyperlipidemia Hearing problem Surgical History Hx of umbilical hernia repair History of hernia repair Hx of tonsillectomy Family History Mother Anemia Bowel disease Colon cancer Hyperlipidemia Father Heart disease Grandfather Diabetes Social History Smoking Status: Current every day smoker (1/2 ppd ) tobacco type: cigarettes Tobacco: How many years used: 45 Electronic Cigarette Use: not used second hand exposure: Yes quit status: has quit before alcohol intake: current alcohol intake frequency: 0-2 drinks per day substance use type: does not use what type of physical activity do you participate in: walking frequency: daily HPI LUMBAR SPINE Details: This documentation accurately reflects the service provided and the decisions made by me, Dr. Skip Friedman MD 03/31/24 2875. Part of today???s visit was documented by Tena Muse LPN, acting as scribe. JUDAH BENITEZ is a 69 year old M here today for follow up on his lumbar spine. He saw Dr Davis earlier this month and was referred to Dr. Mahan. Dr Mahan did a right sided SI injection on 10-17-23, he reports that helped reduce his pain by 85%. He is now noticing that the injection is wearing off. He still reports right hip pain. He received a TFE right L4-L5 L5-S1 on 12-31-23. Dr. Mahan also ordered an MRI. Pt states Dr. Mahan and Dr Davis believe his pain is originating from his low back. Judah was seen by me in September at which time the lumbar MRI had not yet been done. He got the MRI done in October. Since then he has seen Dr. Davis. Apparently the hip injection did not work but the SI joint injection did give him good relief. Ortho Exam General General: Yes no acute distress Neurologic: Yes alert and Yes oriented x3 Spine SPINE TESTING CERVICAL THORACIC LUMBAR Musculoskeletal Strength 0=absent - 5=normal Details: Examination the back shows right PSIS tenderness. Neurologic bilateral lower extremity shows 5 x 5 power normal shows normal sensations in all complex except for right quadricep which is graded 4+ affected by pain. Active straight leg raise test positive on the right side. Figure 4 test is negative bilaterally. Gaenslen test is positive on the right. Hip range of motion is slightly painful on the right with internal rotation. He gets this pain in the lateral hip region. He walks with a Trendelenburg gait on the right side. 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 This showed right hip osteoarthritis, right worse than left SI joint sclerosis (more content not included)... Normal [facility] Orthopedic Visit Reporton Orthopedic Visit Report [facility] [address] [place] [id number] OFFICE VISIT Date of Service: 03/11/24 MR#: [id number] Acct: [id number] Name: BENITEZJUDAH Rep #: [id number] : 1955 Provider: Dr. Enoc Duff so, DO Age/Sex: 69/M Location: [facility] Status: Signed Intake Vital Signs 01/21/24 13:16 Height 5 ft 7 in Weight: 178 lb 8 oz BMI 27.9 BP 119/76 Blood Pressure Location Lt brachial Position Sitting Respiration 18 Pulse 85 Pulse Source Monitor Temp 98.9 F Temp Source Temporal Pulse Oximetry (%) 96 Oxygen Delivery Method room air Intake Visit Reasons: RIGHT HIP Chief Complaint: Right Hip Pain Accompanied by: Is patient in pain?: Yes Pain scale (1-10): 4 Allergies No Known Allergies Allergy (Verified 03/11/24 11:14) Medications ???Medication ???Instructions ???Recorded ???Confirmed ???Type glucosamine-chondroitin- mv-mineral#3 1 tab PO DAILY 12/10/18 03/11/24 History 375 mg-300 mg-25 mg-0.5 mg tablet multivitamin 1 tab PO DAILY 12/10/18 03/11/24 History aspirin 325 mg tablet 180 mg PO .QOD 12/16/18 03/11/24 History meloxicam 15 mg tablet 15 mg PO DAILY #30 tabs 09/17/23 03/11/24 Rx tumeric Not Applicable 09/17/23 03/11/24 History coenzyme Q10 400 mg capsule 400 mg PO DAILY 10/09/23 03/11/24 History Have you fallen in the past year?: No PFSH Medical History Tobacco use disorder, continuous Encounter for screening for malignant neoplasm of lung in current smoker with 30 pack year history or greater GERD (gastroesophageal reflux disease) Excessive sputum Chronic cough History of tinnitus Hyperlipidemia Hearing problem Surgical History Hx of umbilical hernia repair History of hernia repair Hx of tonsillectomy Family History Mother Anemia Bowel disease Colon cancer Hyperlipidemia Father Heart disease Grandfather Diabetes Social History Smoking Status: Current every day smoker (1/2 ppd ) tobacco type: cigarettes Tobacco: How many years used: 45 Electronic Cigarette Use: not used second hand exposure: Yes quit status: has quit before alcohol intake: current alcohol intake frequency: 0-2 drinks per day substance use type: does not use what type of physical activity do you participate in: walking frequency: daily HPI RIGHT HIP Details: This documentation accurately reflects the service provided and the decisions made by me, Dr. Enoc Davis, DO 03/11/24 0804. Part of today???s visit was documented by Heide Larsen ATC, acting as scribe. JUDAH BENITEZ is a 69 year old M 03/11/24: here today for right hip pain. Patient rates his pain a 4/10 today. Patient states he had an injection in the SI joint and states this got rid of 80% of pain and it is still giving him some relief. He then tried an injection in the hip with Dr. Mahan and it did not give him any relief even for a short period. Patient thinks he got this last injection in the hip in the middle of December. Patient states the pain feels the same as it was before it is mostly on the posterior side no groin pain. Patient denies any numbness/tingling go down the leg. Patient states he has a little bit of pain that rarely goes into the groin. He states this pain will come and go. Patient has seen Dr. Mahan for pain management and he was referred to Dr. Friedman for his lumbar spine. Dr. Mahan ordered a lumbar spine MRI and he has gotten that done. He states the whole leg seems to be bothering him some as well. 10/29/2023 Dr. Friedman office visit:He had a right SI joint injection with Dr Mahan on10/17/23 which helped with his posterior back pain. He continues to have lateral hip pain. He denies any radiating pain, numbness or tingling currently. Patient takes aleve for pain as needed. He tried meloxicam but does not need it anymore. Patient had xrays and has an MRI ordered. Judah has seen Dr. Davis for right hip arthritis. His pain is predominantly over the right SI joint which has been there for at least 10 years. Over the last 3 to 4 months this is worsened. He underwent injection by Dr. Vasquez. Based on verbal confirmation, this was a right SI joint injection done in October 16. I am not sure whether an epidural was also given at this time. The injections significantly helped his right SI joint pain as well as right lower extremity radicular symptoms. Patient mentioned that over the last 3 to 4 months he has had radiating pain into the right lower extremity along the anterior thigh and medial hdz up to the ankle. He denies any left- sided symptoms. He says that he has developed a l (more content not included)... Normal [facility] Basophil percentageOrdered B y: Julian Russell on 01-25-2023 Creatinine [Mass/Vol] 1.4 mg/dL 0.70-1.30 [facility] - Chemistry and C hemistry - challengeOrdered By: Julian Russell on 01-25-2023 GFR/1.73 sq M.predicted among non-blacks MDRD (S/P/Bld) [Vol rate/Area] 55.0000 mL/min/{1.73_m2} >60 [facility] Culture, urineOrdered By: Mary Lou Russell on 01-15-2023 Bacteria identified Cx Nom (U) Presumptive E. coli [facility] Basophil percentageOrdered B y: John Brown on 12-26-2022 Basophil percentage 0 SEEN /hpf 0-5 [facility] Bilirubin Test strip Ql (U)O rdered By: John Brown on 12-26-2022 Bilirubin Ql (U) Negative Negative [facility] Ketones Test strip Ql (U)Ord ered By: John Brown on 12-26-2022 Ketones Ql (U) Negative Negative [facility] Mucus LM Ql (Urine sed)Order ed By: John Brown on 12-26-2022 Mucus Ql (Urine sed) 0 SEEN /hpf [facility] Nitrite Test strip Ql (U)Ord ered By: John Brown on 12-26-2022 Nitrite Ql (U) Negative Negative [facility] Protein Test strip Ql (U)Ord ered By: John Brown on 12-26-2022 Protein Ql (U) Negative Negative [facility] Squamous epithelial cells de tection in urine sediment by light microscopyOrdered By: John Brown on 12-26-2022 Epithelial cells.squamous LM Ql (Urine sed) 0 SEEN /hpf 0-5 [facility] Urine blood detectionOrdered By: John Brown on 12-26-2022 RBC Ql (U) Negative Negative [facility] RBC Ql (U) 0 SEEN /hpf 0-5 [facility] Urine clarityOrdered By: Jeff moreno Lc on 12-26-2022 Clarity (U) Clear Clear [facility] Urine color determinationOrd ered By: John Lc on 12-26-2022 Color (U) Yellow Yellow [facility] Urine glucose detectionOrder ed By: John Platt on 12-26-2022 Glucose Ql (U) Normal mg/dl Normal [facility] Urine leukocyte esterase det ection by dipstickOrdered By: John Platt on 12-26-2022 Leukocyte esterase Test strip Ql (U) Negative Negative [facility] Urine pHOrdered By: John Platt on 12-26-2022 pH (U) 6.0 [pH] 5.0 - 8.0 [facility] Urine sediment bacteria coun t by microscopy (number/high power field)Ordered By: John Platt on 12-26-2022 Bacteria LM.HPF (Urine sed) [#/Area] 0 /[HPF] None Seen [facility] Urine specific gravity measu rementOrdered By: John Platt on 12-26-2022 Specific gravity (U) [Rel density] 1.010 1.002-1.030 [facility] Urobilinogen Auto test strip Ql (U)Ordered By: John Platt on 12-26-2022 Urobilinogen Ql (U) Normal mg/dl Normal [facility] Basophil percentageOrdered B y: Dashawn Dinero on 12-14-2022 Basophil percentage 0 SEEN /hpf 0-5 [facility] Bilirubin Test strip Ql (U)O rdered By: Dashawn Dinero on 12-14-2022 Bilirubin Ql (U) Negative Negative [facility] Culture, urineOrdered By: Valentina Dinero on 12-14-2022 Bacteria identified Cx Nom (U) Mixed Gram Pos & Gram Neg Org [facility] Bacteria identified Cx Nom (U) Mixed Gram Pos & Gram Neg Org [facility] Ketones Test strip Ql (U)Ord ered By: Dashawn Dinero on 12-14-2022 Ketones Ql (U) Negative Negative [facility] - Chemistry and C hemistry - challengeon 12-14-2022 Bilirubin Ql (U) Negative [facility] Glucose Ql (U) Negative [facility] Ketones Ql (U) Negative [facility] pH (U) 6.5 [pH] [facility] Specific gravity (U) [Rel density] 1.010 [facility] Urobilinogen (U) [Mass/Vol] 0.2849215 mg/dL [facility] - Hematology and Cell countson 12-14-2022 Hemoglobin Ql (U) Negative [facility] - Specimen inform ationon 12-14-2022 Clarity (U) Cloudy [facility] Color (U) YELLOW [facility] - Urinalysison Nitrite Ql (U) Negative [facility] Protein Ql (U) Negative [facility] Mucus LM Ql (Urine sed)Order ed By: Dashawn Dinero on 12-14-2022 Mucus Ql (Urine sed) 0 SEEN /hpf [facility] Nitrite Test strip Ql (U)Ord ered By: Dashawn Dinero on 12-14-2022 Nitrite Ql (U) Negative Negative [facility] No Panel Informationon 12-14 Urine Leukocytes Positive [facility] Urine Non-Hemolyzed Blood Negative [facility] Protein Test strip Ql (U)Ord ered By: Dashawn Dinero on 12-14-2022 Protein Ql (U) 30 mg/dl Negative [facility] Squamous epithelial cells de tection in urine sediment by light microscopyOrdered By: Dashawn Dinero on 12-14-2022 Epithelial cells.squamous LM Ql (Urine sed) 0 SEEN /hpf 0-5 [facility] Urine blood detectionOrdered By: Dashawn Dinero on 12-14-2022 RBC Ql (U) 10 /ul Negative [facility] RBC Ql (U) 0 SEEN /hpf 0-5 [facility] Urine clarityOrdered By: Marko Dinero on 12-14-2022 Clarity (U) Clear Clear [facility] Urine color determinationOrd ered By: Dashawn Dinero on 12-14-2022 Color (U) Yellow Yellow [facility] Urine glucose detectionOrder ed By: Dashawn Dinero on 12-14-2022 Glucose Ql (U) Normal mg/dl Normal [facility] Urine leukocyte esterase det ection by dipstickOrdered By: Dashawn Dinero on 12-14-2022 Leukocyte esterase Test strip Ql (U) Negative Negative [facility] Urine pHOrdered By: Dashawn alcazar on 12-14-2022 pH (U) 6.0 [pH] 5.0 - 8.0 [facility] Urine sediment bacteria coun t by microscopy (number/high power field)Ordered By: Dashawn Dinero on 12-14-2022 Bacteria LM.HPF (Urine sed) [#/Area] 0 /[HPF] None Seen [facility] Urine specific gravity measu rementOrdered By: Dashawn Dinero on 12-14-2022 Specific gravity (U) [Rel density] 1.015 1.002-1.030 [facility] Urobilinogen Auto test strip Ql (U)Ordered By: Dashawn Dinero on 12-14-2022 Urobilinogen Ql (U) Normal mg/dl Normal [facility] Basophil percentageOrdered B y: John Platt on 10-30-2022 Bilirubin [Mass/Vol] 1.20 mg/dL 0.20-1.00 [facility] Comment on above: For patients on eltr ombopag therapy, use of Dimension [place] TBIL is not recommended. Chloride [Moles/Vol] 107 mmol/L 98-107 [facility] Cholesterol [Mass/Vol] 238 mg/dL <200 [facility] Comment on above: <200 mg/dL Desirable 200-240 mg/dL Borderline >240 mg/dL High Risk Glucose [Mass/Vol] 93 mg/dL 74-106 [facility] Potassium [Moles/Vol] 4.4 mmol/L 3.5-5.1 [facility] Protein [Mass/Vol] 6.8 g/dL 6.4-8.2 [facility] Sodium [Moles/Vol] 138 mmol/L 136-145 [facility] Triglyceride [Mass/Vol] 276 mg/dL <199 [facility] Comment on above: The drugs N-Acetylcy steine and Metamizole may falsely depress this assay.Serum Triglycerides Reference Interval Normal <150 mg/dL Borderline high 150 - 199 mg/dL High 200 - 499 mg/dL Very High > or = 500 mg/dL Laboratory - Chemistry and C hemistry - challengeOrdered By: John Platt on 10-30-2022 ALP [Catalytic activity/Vol] 81 U/L 45-117 [facility] ALT [Catalytic activity/Vol] 45 U/L 16-61 [facility] CO2 [Moles/Vol] 27.0 mmol/L 21.0-32.0 [facility] Globulin (S) [Mass/Vol] 3.2 g/dL 2.2-4.2 [facility] Urea nitrogen/Creatinine [Mass ratio] 15.9 mg/mg 10-20 [facility] No Panel InformationOrdered By: John Platt on 10-30-2022 Estimated GFR (MDRD) Amer 89 mL/min >60 [facility] Comment on above: GFR Calc Estimated GFR (MDRD) Non-Af Amer 73 mL/min >60 [facility] Comment on above: Non- GFR Calc Prostate Specific Antigen Total 2.57 ng/mL 0.0-4.0 [facility] Comment on above: This test was perfor med using the TPSA assay method for [place] chemistry system. Values obtained with differentassay methods cannot be used interchangably.When changing PSA assays in the course of monitoring apatient, additional sequential testing should be carriedout to confirm baseline values. Serum or plasma albumin xiao urement (mass/volume)Ordered By: John Platt on 10-30-2022 Albumin [Mass/Vol] 3.6 g/dL 3.2-5.0 [facility] Serum or plasma albumin/glob ulin mass ratioOrdered By: John Platt on 10-30-2022 Albumin/Globulin [Mass ratio] 1.1 {ratio} 0.9-2.4 [facility] Serum or plasma calcium xiao urement (mass/volume)Ordered By: John Platt on 10-30-2022 Calcium [Mass/Vol] 8.6 mg/dL 8.5-10.1 [facility] Serum or plasma cholesterol in HDL measurement (mass/volume)Ordered By: John Platt on 10-30-2022 Cholesterol in HDL [Mass/Vol] 47 mg/dL >40 [facility] Comment on above: The drugs N-Acetylcy steine and Metamizole may falsely depress this assay. Reference Range HDL <40 mg/dL Low HDL Cholesterol HDL >or= 60 mg/dL High HDL Cholesterol Serum or plasma cholesterol in VLDL measurement (mass/volume)Ordered By: John Platt on 10-30-2022 Cholesterol in VLDL [Mass/Vol] 55 mg/dL 5-40 [facility] Serum or plasma creatinine m easurement (mass/volume)Ordered By: John Platt on 10-30-2022 Creatinine [Mass/Vol] 1.07 mg/dL 0.70-1.30 [facility] Comment on above: The validity of the calculated GFR & GFRAA in patients over 70 years has not been determined. Clinical correlation is essential. Serum or plasma low density lipoprotein (LDL) cholesterol measurement (mass/volume)Ordered By: Jhon Platt on 10-30-2022 Cholesterol in LDL [Mass/Vol] 136 mg/dL 0-130 [facility] Serum or plasma urea nitroge n measurement (mass/volume)Ordered By: John Platt on 10-30-2022 Urea nitrogen [Mass/Vol] 17 mg/dL 7-18 [facility] Thin prep Papanicolaou smear with manual screeningOrdered By: John Platt on 10-30-2022 Thin prep Papanicolaou smear with manual screening 27 U/L 15-37 [facility] Thin prep Papanicolaou smear with manual screening 4 5-15 [facility] Basic Metabolic Panlon 03-14 Anion gap 18 mmol/L Normal 9-18 [facility] Comment on above: Performed By: #### B MP ####[facility] [address], [place] [phone] Calcium 8.6 mg/dL Normal 8.5-10.2 [facility] Comment on above: Performed By: #### B MP ####[facility] [address], [place] [phone] Chloride 91 mmol/L Low 97-105 [facility] Comment on above: Performed By: #### B MP ####[facility] [address], [place] [phone] CO2 21 mmol/L Low 22-30 [facility] Comment on above: Performed By: #### B MP ####[facility] [place], [place] [phone] Creatinine 1.42 mg/dL High 0.73-1.22 [facility] Comment on above: Performed By: #### B MP ####[facility] [place] [address] [phone] eGFR (non-black) 51 . Normal [facility] Comment on above: Result Comment: eGFR (Estimated GFR) Units of measure: mL/min/1.73 meters squaredeGFR is derived from the reexpressed MDRD Study equation using the following parameters: serum creatinine, age, gender and race. The creatinine assay has been calibrated to be traceable to IDMS.An eGFR <60 mL/min/1.73m2 for >3 months is consistent with chronic kidney disease. Refer to KDOQI guidelines for clinical interpretation.In patients with unstable renal function, e.g. those with acute kidney injury, the eGFR may not accurately reflect actual GFR. Performed By: #### B MP ####[place] [id number] [place], [place] [phone] eGFR (non-black) mL/min/{1.73_m2} Normal [facility] Comment on above: Performed By: #### B MP ####[address] [phone] Glucose mass conc 140 mg/dL High 74-99 [facility] Comment on above: Result Comment: The [place] [employer] Association (ADA) provides guidance for cutoff values for fasting glucose and random glucose. The ADA defines fasting as no caloric intake for at least 8 hours. Fasting plasma glucose results between 100 to 125 mg/dL indicate increased risk for diabetes (prediabetes).Fasting plasma glucose results greater than or equal to 126 mg/dL meet the criteria for diagnosis of diabetes. In the absence of unequivocal hyperglycemia, results should be confirmed by repeat testing. In a patient with classic symptoms of hyperglycemia or hyperglycemic crisis, random plasma glucose results greater than or equal to 200 mg/dL meet the criteria for diagnosis of diabetes.Reference: Standards of Medical Care in Diabetes 2016, [place] [employer]. Diabetes Care. 2016.39(Suppl 1). Performed By: #### B MP ####[facility] [address] [place], [place] [phone] Potassium molar conc 4.0 mmol/L Normal 3.7-5.1 [facility] Comment on above: Performed By: #### B MP ####[facility] [place], [place] [phone] Sodium 130 mmol/L Low 136-144 [facility] Comment on above: Performed By: #### B MP ####[facility] [address] [place], [place] [phone] Urea nitrogen 24 mg/dL Normal 9-24 [facility] Comment on above: Performed By: #### B MP ####[facility] [address] [place], [place] [phone] C difficile PCRon 03-14-2017 C difficile PCR Positive [facility] Comment on above: Performed By: #### C DPCR ####[facility] [place] [place], [place] [phone] CNOVon 03-14-2017 CNOV Office Visit (UCWSTR) Navdeep BENITEZ ([id number]) 1955 MDate Time Provider Cnblgebtfc86/14/17 10:30 AM ANGELICA GREENBERG (SU) WSTR During your visit today, we recorded the following information about you: Temperature Pulse Respiration Blood pressure 100.7 degrees 72/minute 16/minute 104/74 Weight 81 kgAngelica Greenberg CNP 03/14/2017 11:26 AM SignedThe history is provided by the patient. No specialized language instructor was used.HPI Judah Benitez is a 62 year old male who presents today for CC of cough andcongestion This started Saturday evening. He is also having fever off an onsince Saturday 102.2 last night, watery diarrhea 6 episodes since Saturday, deniesany blood in the stool. Symptoms are worsened by nothing. he has triedtheraflu yesterday Risk factors family members ill PMH smokerBP 104/74 Pulse 72 Temp 38.2 ?C (100.7 ?F) (Tympanic) Resp 16 Wt 81 kg(178 lb 9.6 oz) SpO2 93%ALLERGIESNo Known AllergiesThere is no problem list on file for this patient.No family history on file.Social History Marital status: Spouse name: Years of education: Number of children:Social History Main Topics Smoking status: Current Every Day Smoker Packs/day: 0.50 Years: 45.00 Smokeless status: Never UsedReview of SystemsConstitutional: Positive for chills, fever and malaise/fatigue.HENT: Positive for congestion. Negative for ear pain and sore throat.Respiratory: Positive for cough. Negative for sputum production, shortness ofbreath and wheezing.Cardiovascular: Negative for chest pain.Gastrointestinal: Positive for abdominal pain (mild cramping) and diarrhea.Negative for nausea and vomiting.Musculoskeletal : Negative for myalgias.Skin: Negative for rash.Neurological: Negative for headaches.Physical ExamConstitutional: He is oriented to person, place, and time and well-developed,well-nour ished, and in no distress.HENT:Head: Normocephalic and atraumatic.Right Ear: External ear and ear canal normal. Tympanic membrane is injected.Tympanic membrane is not erythematous, not retracted and not bulging. No middleear effusion.Left Ear: External ear and ear canal normal. Tympanic membrane is injected.Tympanic membrane is not erythematous, not retracted and not bulging. Nomiddle ear effusion.Nose: Mucosal edema and rhinorrhea present. Right sinus exhibits no maxillarysinus tenderness and no frontal sinus tenderness. Left sinus exhibits nomaxillary sinus tenderness and no frontal sinus tenderness.Mouth/Throat: Uvula is midline and mucous membranes are normal. Posteriororopharyngeal erythema present. No oropharyngeal exudate, posteriororopharyngeal edema or tonsillar abscesses.Eyes: Conjunctivae and EOM are normal. Pupils are equal, round, and reactive tolight.Neck: Normal range of motion. Neck supple.Cardiovascular: Normal rate, regular rhythm and normal heart sounds.Pulmonary/Chest: Effort normal. No respiratory distress. He has decreasedbreath sounds. He has wheezes. He has no rhonchi. He has no rales.Decreased breath sounds noted throughout, with wheezing, albuterol nebulilzertreatment done, with improved air exchange and decreased wheezing, withimprovement in PO2 to 96% from 93%Abdominal: Soft. Bowel sounds are hyperactive. There is no hepatosplenomegaly.There is no tenderness. There is no rigidity, no rebound, no guarding and noCVA tenderness.Lymphadenopat hy: Head (right side): No submental, no submandibular, no tonsillar, nopreauricular and no posterior auricular adenopathy present. Head (left side): No submental, no submandibular, no tonsillar, nopreauricular and no posterior auricular adenopathy present. He has no cervical adenopathy. Right cervical: No posterior cervical adenopathy present. Left cervical: No posterior cervical adenopathy present. Right: No supraclavicular adenopathy present. Left: No supraclavicular adenopathy present.Neurological: He is alert and oriented to person, place, and time.Skin: Skin is warm and dry.Psychiatric: Affect normal.Nursing note and vitals reviewed.ASSESSMENT/PLAN :1. URI with cough and congestion - ICD9: 465.9, ICD10: J06.9 (primary diagnosis)- Discussed viral etiology and rationale for treatment.- Symptomatic treatment with prn analgesia- Supportive care with fluids and rest- The patient may also use warm salt water gargles, throat lozenges and/or OTCthroat spray as needed and nasal saline gtts and suction prn.- Follow up in one week if symptoms persist or sooner if worsening of symptoms- Mucinex 600 mg by mouth twice a day- PREDNISONE 20 MG TABLET- ALBUTEROL SULFATE HFA 90 MCG/ACTUATION AEROSOL INHALER- BENZONATATE 200 MG CAPSULE2. Diarrhea, unspecified type - ICD9: 787.91, ICD10: R19.7Will check labsDiscussed hydration and signs of dehydration.Follow up with PCP if no improvement if not necessary- BASIC METABOLIC PNL- STOOL CULTURE/EIA- C. DIFFICILE PCR- OVA + PARA MICROSCOPIC3. Decreased breath sounds - ICD9: 786.7, ICD10: R06.89- ALBUTEROL SULFATE CONCENTRATE 5 MG/ML(0.5 %) SOLUTION FOR NEBULIZATIONDiagnosis and treatment plan were discussed and questions were answered to thepatient's satisfaction. Pt acknowledged understanding of concepts and follow upplan.Specific signs and symptoms that would indicate the need for higher level ofcare were discussed in detail warranting prompt ER evaluation.Zaheer Villarreal CNP 03/14/2017 11:19 AM SignedASSESSMENT/PLAN:1. URI with cough and congestion - ICD9: 465.9, ICD10: J06.9 (primary diagnosis)- Discussed viral etiology and rationale for treatment.- Symptomatic treatment with prn analgesia- Supportive care with fluids and rest- The patient may also use warm salt water gargles, throat lozenges and/or OTCthroat spray as needed and nasal saline gtts and suction prn.- Follow up in one week if symptoms persist or sooner if worsening of symptoms- Mucinex 600 mg by mouth twice a day- PREDNISONE 20 MG TABLET- ALBUTEROL SULFATE HFA 90 MCG/ACTUATION AEROSOL INHALER- BENZONATATE 200 MG CAPSULE2. Diarrhea, unspecified type - ICD9: 787.91, ICD10: R19.7Dietary recommendations???If you are not dehydrated you should continue to eat a regular diet. Make sureto get 80 ounces water in a daySpecific suggestions if you are tolerating a regular diet include the following:?Dairy is ok. It is not necessary to dilute or avoid milk products.?Recommended foods include a combination of complex carbohydrates (rice, wheat,potatoes, bread), lean meats, yogurt, fruits, and vegetables. High-fat foodsare more difficult to absorb and should be avoided.?The unnecessary restriction of a child's diet to clear liquids or the BRATdiet (bananas, rice, applesauce, toast) results in inadequate intake ofnutrients (calories and/or protein). Giving only clear liquids for several dayscan actually prolong diarrhea (called ANDquot;starvation stoolsANDquot;).?Sports drinks (sample brand name: Gatorade) should be avoided because theyhave too much sugar and have inappropriate electrolyte levels for the patientwith diarrhea. If fruit juice is to be given, we suggest starting withhalf-strength apple juice (apple juice mixed with an equal amount of water) anddrink whatever you prefer.Will notify of lab results- BASIC METABOLIC PNL- STOOL CULTURE/EIA- C. DIFFICILE PCR- OVA + PARA MICROSCOPIC3. Decreased breath sounds - ICD9: 786.7, ICD10: R06.89- ALBUTEROL SULFATE CONCENTRATE 5 MG/ML(0.5 %) SOLUTION FOR NEBULIZATIONNavjot RamírezMarshall Medical Center 03/14/2017 12:44 PM SignedAlbuterol solution 0.083% aerosol treatment given per doctor's order at11:05am. Prior to treatment,O2 sat is 93% on room air.Treatment completed at11:15am. O2 sat is 95% on room air, Patient tolerated well.[facility] PHARMLOT# [id number]- 07/2018[facility] CmaReferring Provider: SELF [[id number]]Allergies As of Date: 03/14/2017(No Known Allergies)Date Reviewed: 03/14/2017Reviewed by: Angelica ([facility]) Yari - Fully AssessedReason for Visit: cough, congestion and fever [Other] Cmt: x 4 daysPrimary Visit Diagnosis:URI with cough and congestion [J06.9] Other Visit Diagnoses:Diarrhea, unspecified type [R19.7] Decreased breath sounds [R06.89]Order(s):albuter ol (PROVENTIL) 5 mg/mL nebuInhale 0.5 mL as instructed one time only for 1 dose. 1 DOSE NOW - BACK OFFICE. PLACE 0.5 ML PER DROPPER AND 2.5 ML OF NORMAL SALINE INTO RESERVOIR.Disp: 1 mLRfl: 0 BASIC METABOLIC PNL [SQBMP] Order #: [id number] FUTURE STOOL CULTURE/EIA [SQSTOCUL] Order #: [id number] FUTURE C. DIFFICILE PCR [SQCDPCR] Order #: [id number]. #:[id number] OVA + PARA MICROSCOPIC [SQOVAP] Order #: [id number]. #:[id number] predniSONE (DELTASONE) 20 mg tabletPrednisone 40 mg (2-20mg tablets) po QD for 5 daysDisp: 10 tabletRfl: 0 albuterol HFA (PROAIR HFA) 90 mcg/actuation inhalerInhale 2 Puffs as instructed every 4 hours as needed.Disp: 1 InhalerRfl: 0 Benzonatate 200 mg capsuleTake 1 capsule by mouth three times daily as needed.Disp: 30 capsuleRfl: 0Prescriptions as of 03/14/2017 Sig: ALBUTEROL SULFATE CONCENTRATE* Inhale 0.5 mL as instructed o* PREDNISONE 20 MG TABLET Prednisone 40 mg (2-20mg tabl* ALBUTEROL SULFATE HFA 90 MCG/* Inhale 2 Puffs as instructed * BENZONATATE 200 MG CAPSULE Take 1 capsule by mouth three*Medication notes this encounter ALBUTEROL SULFATE CONCENTRATE 5 MG/ML(0.5 %) SOLUTION FOR NEBULIZATION >> Navjot Hyman Cma 03/14/2017 12:44 PM >> NAVJOT HYMAN CMA Mar 14, 2017 12:44 PM Albuterol solution 0.083% aerosol treatment given per doctor's order at11:05am. Prior to treatment,O2 sat is 93% on room air.Treatment completed at11:15am. O2 sat is 95% on room air, Patient tolerated well. [facility] LOT# [id number] 07/2018 Navjot Hyman CmaProblem List As Of Date: 03/14/2017(None) Other instructions from your clinician: ASSESSMENT/PLAN: 1. URI with cough and congestion - ICD9: 465.9, ICD10: J06.9 (primary diagnosis) - Discussed viral etiology and rationale for treatment. - Symptomatic treatment with prn analgesia - Supportive care with fluids and rest - The patient may also use warm salt water gargles, throat lozenges and/or OTC throat spray as needed and nasal saline gtts and suction prn. - Follow up in one week if symptoms persist or sooner if worsening of symptoms - Mucinex 600 mg by mouth twice a day - PREDNISONE 20 MG TABLET - ALBUTEROL SULFATE HFA 90 MCG/ACTUATION AEROSOL INHALER - BENZONATATE 200 MG CAPSULE 2. Diarrhea, unspecified type - ICD9: 787.91, ICD10: R19.7 Dietary recommendations??? If you are not dehydrated you should continue to eat a regular diet. Make sure to get 80 ounces water in a day Specific suggestions if you are tolerating a regular diet include the following: ?Dairy is ok. It is not necessary to dilute or avoid milk products. ?Recommended foods include a combination of complex carbohydrates (rice, wheat, potatoes, bread), lean meats, yogurt, fruits, and vegetables. High-fat foods are more difficult to absorb and should be avoided. ?The unnecessary restriction of a child's diet to clear liquids or the BRAT diet (bananas, rice, applesauce, toast) results in inadequate intake of nutrients (calories and/or protein). Giving only clear liquids for several days can actually prolong diarrhea (called starvation stools). ?Sports drinks (sample brand name: Gatorade) should be avoided because they have too much sugar and have inappropriate electrolyte levels for the patient with diarrhea. If fruit juice is to be given, we suggest starting with half-strength apple juice (apple juice mixed with an equal amount of water) and drink whatever you prefer. Will notify of lab results - BASIC METABOLIC PNL - STOOL CULTURE/EIA - C. DIFFICILE PCR - OVA + PARA MICROSCOPIC 3. Decreased breath sounds - ICD9: 786.7, ICD10: R06.89 - ALBUTEROL SULFATE CONCENTRATE 5 MG/ML(0.5 %) SOLUTION FOR NEBULIZATIONVisit Notes:>> Navjot Hyman Cma [place] Mar 14, 2017 12:44 PM Status: SignedAlbuterol solution 0.083% aerosol treatment given per doctor's order at11:05am. Prior to treatment,O2 sat is 93% on room air.Treatment completedat 11:15am. O2 sat is 95% on room air, Patient tolerated well.[facility] PHARMLOT# [id number]- 07/2018Navjot Hyman CmaPrescriptions ordered this encounter Disp Refills Start End ALBUTEROL SULFATE CONCENTRATE 5 MG/M* 1 mL 0 03/14/2017 03/14/2017 Class: Back Office Route: INHALATION Sig: Inhale 0.5 mL as instructed one time only for 1 dose. 1 DOSE NOW - BACK OFFICE. PLACE 0.5 ML PER DROPPER AND 2.5 ML OF NORMAL SALINE INTO RESERVOIR. PREDNISONE 20 MG TABLET 10 t* 0 03/14/2017 Sig: Prednisone 40 mg (2-20mg tablets) po QD for 5 days ALBUTEROL SULFATE HFA 90 MCG/ACTUATI* 1 In* 0 03/14/2017 Route: INHALATION Sig: Inhale 2 Puffs as instructed every 4 hours as needed. BENZONATATE 200 MG CAPSULE 30 c* 0 03/14/2017 Route: ORAL Sig: Take 1 capsule by mouth three times daily as needed. Status:Closed by ANGELICA GREENBERG CNP on 03/14/17 [facility] Ova and Parasite Exon 2016 Ova and Parasite Ex Sp. Request/Comment: - Specimen received in Ova and Parasite Kit. Culture Result - No parasites seen. [facility] Comment on above: Performed By: #### O VAP ####[facility] [address] [place], [place] [phone] PROGRESSon 03-14-2017 PROGRESS HNO ID: [id number]: Angelica (Su) FulkService: (none)Author Type: Nurse PractitionerType: Progress NotesFiled: 03/14/2017 11:26 AMNote Text:The history is provided by the patient. No specialized language instructor was used.HPI Judah Benitez is a 62 year old male who presents today for CC ofcough and congestion This started Saturday evening. He is also havingfever off an on since Saturday 102.2 last night, watery diarrhea 6 episodessince Saturday, denies any blood in the stool. Symptoms are worsened bynothing. he has tried theraflu yesterday Risk factors family members ill PMH smokerBP 104/74 Pulse 72 Temp 38.2 ?C (100.7 ?F) (Tympanic) Resp 16 Wt81 kg (178 lb 9.6 oz) SpO2 93%ALLERGIESNo Known AllergiesThere is no problem list on file for this patient.No family history on file.Social History Marital status: Spouse name: Years of education: Number of children:Social History Main Topics Smoking status: Current Every Day Smoker Packs/day: 0.50 Years: 45.00 Smokeless status: Never UsedReview of SystemsConstitutional: Positive for chills, fever and malaise/fatigue.HENT: Positive for congestion. Negative for ear pain and sore throat.Respiratory: Positive for cough. Negative for sputum production, shortnessof breath and wheezing.Cardiovascular: Negative for chest pain.Gastrointestinal: Positive for abdominal pain (mild cramping) anddiarrhea. Negative for nausea and vomiting.Musculoskeletal : Negative for myalgias.Skin: Negative for rash.Neurological: Negative for headaches.Physical ExamConstitutional: He is oriented to person, place, and time andwell-developed, well-nourished, and in no distress.HENT:Head: Normocephalic and atraumatic.Right Ear: External ear and ear canal normal. Tympanic membrane isinjected. Tympanic membrane is not erythematous, not retracted and notbulging. No middle ear effusion.Left Ear: External ear and ear canal normal. Tympanic membrane isinjected. Tympanic membrane is not erythematous, not retracted and notbulging. No middle ear effusion.Nose: Mucosal edema and rhinorrhea present. Right sinus exhibits nomaxillary sinus tenderness and no frontal sinus tenderness. Left sinusexhibits no maxillary sinus tenderness and no frontal sinus tenderness.Mouth/Throat: Uvula is midline and mucous membranes are normal. Posteriororopharyngeal erythema present. No oropharyngeal exudate, posteriororopharyngeal edema or tonsillar abscesses.Eyes: Conjunctivae and EOM are normal. Pupils are equal, round, andreactive to light.Neck: Normal range of motion. Neck supple.Cardiovascular: Normal rate, regular rhythm and normal heart sounds.Pulmonary/Chest: Effort normal. No respiratory distress. He has decreasedbreath sounds. He has wheezes. He has no rhonchi. He has no rales.Decreased breath sounds noted throughout, with wheezing, albuterolnebulilzer treatment done, with improved air exchange and decreasedwheezing, with improvement in PO2 to 96% from 93%Abdominal: Soft. Bowel sounds are hyperactive. There is nohepatosplenomegaly. There is no tenderness. There is no rigidity, norebound, no guarding and no CVA tenderness.Lymphadenopat hy: Head (right side): No submental, no submandibular, no tonsillar, nopreauricular and no posterior auricular adenopathy present. Head (left side): No submental, no submandibular, no tonsillar, nopreauricular and no posterior auricular adenopathy present. He has no cervical adenopathy. Right cervical: No posterior cervical adenopathy present. Left cervical: No posterior cervical adenopathy present. Right: No supraclavicular adenopathy present. Left: No supraclavicular adenopathy present.Neurological: He is alert and oriented to person, place, and time.Skin: Skin is warm and dry.Psychiatric: Affect normal.Nursing note and vitals reviewed.ASSESSMENT/PLAN :1. URI with cough and congestion - ICD9: 465.9, ICD10: J06.9 (primarydiagnosis)- Discussed viral etiology and rationale for treatment.- Symptomatic treatment with prn analgesia- Supportive care with fluids and rest- The patient may also use warm salt water gargles, throat lozenges and/orOTC throat spray as needed and nasal saline gtts and suction prn.- Follow up in one week if symptoms persist or sooner if worsening ofsymptoms- Mucinex 600 mg by mouth twice a day- PREDNISONE 20 MG TABLET- ALBUTEROL SULFATE HFA 90 MCG/ACTUATION AEROSOL INHALER- BENZONATATE 200 MG CAPSULE2. Diarrhea, unspecified type - ICD9: 787.91, ICD10: R19.7Will check labsDiscussed hydration and signs of dehydration.Follow up with PCP if no improvement if not necessary- BASIC METABOLIC PNL- STOOL CULTURE/EIA- C. DIFFICILE PCR- OVA + PARA MICROSCOPIC3. Decreased breath sounds - ICD9: 786.7, ICD10: R06.89- ALBUTEROL SULFATE CONCENTRATE 5 MG/ML(0.5 %) SOLUTION FOR NEBULIZATIONDiagnosis and treatment plan were discussed and questions were answered tothe patient's satisfaction. Pt acknowledged understanding of concepts andfollow up plan.Specific signs and symptoms that would indicate the need for higher levelof care were discussed in detail warranting prompt ER evaluation.Angelica Greenberg, SU [facility] Stool Cultureon 03-14-2017 Stool Culture Sp. Request/Comment: - Specimen received in a Culture and Susceptibility Kit.Campylobacter EIA - Negative for Campylobacter species by EIA.Shiga Toxin - Negative for Shiga toxin 1 and 2 by EIACulture Result - Negative for Salmonella and Shigella sp. Negative for Escherichia coli O157:H7 [facility] Comment on above: Performed By: #### S TCUL ####[facility] [address] [place], [place] [phone] Vital Signs Date Time Vital Sign Value Performing Clinician Sarath hare 05-27-2024 08:34-0500 Body height 170.[address] John Platt DO Work Phone: [facility] 05-27-2024 08:34-0500 Body mass index (BMI) [Ratio] 28 kg/m2 Dr. John Platt DO Work Phone: [facility] 05-27-2024 08:34-0500 Body temperature 97.8 [degF] Dr. John Platt DO Work Phone: [facility] 05-27-2024 08:34-0500 Body weight 81.[address] John Platt DO Work Phone: [facility] 05-27-2024 08:34-0500 Diastolic blood pressure 78 mm[Hg] Dr. John Platt DO Work Phone: [facility] 05-27-2024 08:34-0500 Heart rate 88 /min Dr. John Platt DO Work Phone: [facility] 05-27-2024 08:34-0500 Respiratory rate 16 /min Dr. John Platt DO Work Phone: [facility] 05-27-2024 08:34-0500 SaO2% (BldA) [Mass fraction] 99 % Dr. John Platt DO Work Phone: [facility] 05-27-2024 08:34-0500 Systolic blood pressure 120 mm[Hg] Dr. John Platt DO Work Phone: [facility] 12-26-2022 14:36-0400 Body height 170.[address] John Platt Work Phone: [facility] 12-26-2022 14:36-0400 Body mass index (BMI) [Ratio] 27.3 kg/m2 Dr. John Platt Work Phone: [facility] 12-26-2022 14:36-0400 Body temperature 96.9 [degF] Dr. John Platt Work Phone: [facility] 12-26-2022 14:36-0400 Body weight 79.[address] John Platt Work Phone: [facility] 12-26-2022 14:36-0400 Diastolic blood pressure 80 mm[Hg] Dr. John Platt Work Phone: [facility] 12-26-2022 14:36-0400 Heart rate 88 /min Dr. John Platt Work Phone: [facility] 12-26-2022 14:36-0400 Respiratory rate 18 /min Dr. John Platt Work Phone: [facility] 12-26-2022 14:36-0400 SaO2% (BldA) [Mass fraction] 96 % Dr. John Platt Work Phone: [facility] 12-26-2022 14:36-0400 Systolic blood pressure 130 mm[Hg] Dr. John Platt Work Phone: [facility] 12-14-2022 14:39-0400 Body height 170.[address] John Platt Work Phone: [facility] 12-14-2022 14:39-0400 Body mass index (BMI) [Ratio] 27.3 kg/m2 Dr. Jhon Platt Work Phone: [facility] 12-14-2022 14:39-0400 Body weight 79.[address] John Platt Work Phone: [facility] 12-14-2022 14:39-0400 Diastolic blood pressure 88 mm[Hg] Dr. John Platt Work Phone: [facility] 12-14-2022 14:39-0400 Heart rate 95 /min Dr. John Platt Work Phone: [facility] 12-14-2022 14:39-0400 Respiratory rate 16 /min Dr. John Platt Work Phone: [facility] 12-14-2022 14:39-0400 SaO2% (BldA) [Mass fraction] 93 % Dr. John Platt Work Phone: [facility] 12-14-2022 14:39-0400 Systolic blood pressure 143 mm[Hg] Dr. John Platt Work Phone: [facility] 10-30-2022 14:40-0400 Body height 170.[address] John Platt Work Phone: [facility] 10-30-2022 14:40-0400 Body mass index (BMI) [Ratio] 29 kg/m2 Dr. John Platt Work Phone: [facility] 10-30-2022 14:40-0400 Body temperature 98 [degF] Dr. John Platt Work Phone: [facility] 10-30-2022 14:40-0400 Body weight 83.[address] John Platt Work Phone: [facility] 10-30-2022 14:40-0400 Diastolic blood pressure 96 mm[Hg] Dr. Jhon Platt Work Phone: [facility] 10-30-2022 14:40-0400 Heart rate 84 /min Dr. John Platt Work Phone: [facility] 10-30-2022 14:40-0400 Respiratory rate 16 /min Dr. John Platt Work Phone: [facility] 10-30-2022 14:40-0400 SaO2% (BldA) [Mass fraction] 99 % Dr. John Platt Work Phone: [facility] 10-30-2022 14:40-0400 Systolic blood pressure 144 mm[Hg] Dr. John Platt Work Phone: [facility] Encounters Encounter Date Encounter Type Care Provider Facility Start: 02-16-2025 ambulatory John Saini y:[facility] Start: 05-27-2024 End: 05-27-[address] John Larsen DO -[facility] Work Phone: Start: 05-27-2024 End: 05-27-[address] John Larsen DO [facility] Start: 05-27-2024 End: 05-27-[address] John Platt DO Work Phone: [facility] Work Phone: Start: 05-27-2024 End: 05-27-2024 ambulatory John Chava Platt Facility:[facility] Start: 04-13-2024 End: 04-13-[address] Micheline Mahan MD -Radiology, [facility] Work Phone: Start: 04-13-2024 End: 04-13-2024 ambulatory John Platt Facility:[facility] Start: 03-31-2024 End: 03-31-[address] Skip Friedman MD -[facility] Work Phone: Start: 03-31-2024 End: 03-31-2024 ambulatory John Platt Facility:[facility] Start: 03-11-2024 End: 03-11-[address] Enoc Davis DO -[facility] Work Phone: Start: 03-11-2024 End: 03-11-2024 ambulatory John Platt Facility:[facility] Start: 02-14-2023 End: 02-14-[address] John Platt Work Phone: [facility] Work Phone: Start: 02-14-2023 End: 02-14-2023 Patient encounter procedure Dr. John Platt Work Phone: [facility], [facility] Work Phone: Start: 01-25-2023 End: 01-25-[address] John Platt Work Phone: [facility] Work Phone: Start: 01-25-2023 End: 01-25-[address] [facility] Work Phone: Start: 01-15-2023 End: 01-15-[address] John Platt Work Phone: [facility] Work Phone: Start: 01-15-2023 End: 01-15-[address] [facility] Platt [facility] Work Phone: Start: 01-05-2023 End: 01-05-[address] John Platt Work Phone: [facility] Work Phone: Start: 01-05-2023 End: 01-05-[address] John Platt Work Phone: [facility], [facility] Work Phone: Start: 12-26-2022 End: 12-26-[address] John Platt Work Phone: [facility] Work Phone: Start: 12-26-2022 End: 12-26-[address] John Platt Work Phone: [facility] Work Phone: Start: 12-14-2022 End: 12-14-[address] John Platt Work Phone: [facility] Work Phone: Start: 12-14-2022 End: 12-14-[address] John Platt [facility] Work Phone: Start: 12-14-2022 End: 12-14-[address] John Platt Work Phone: [facility] Work Phone: Start: 11-13-2022 End: 11-13-[address] John Platt Work Phone: [facility] Work Phone: Start: 11-13-2022 End: 11-13-[address] John Platt Work Phone: [facility] Work Phone: Start: 10-31-2022 Non-patient / Non-visit Dr. Lomeli Work Phone: [facility] Start: 10-30-2022 End: 10-30-[address] John Platt Work Phone: [facility] Work Phone: Start: 10-30-2022 End: 10-30-[address] John Platt Work Phone: [facility] Work Phone: Start: 03-14-2017 End: 03-15-2017 Ambulatory ANGELICA (LUPE GREENBERG [facility] Procedures Date Procedure Procedure Detail Performing Clinician Start: 04-13-2024 X-ray of knee, one o r two views Dr. John Platt DO Work Phone: Start: 02-14-2023 CT of chest without contrast Dr. John Platt Work Phone: Start: 01-25-2023 Computed tomography of abdomen and pelvis with contrast Dr. John Platt Work Phone: Start: 01-15-[address] Sigifredo Platt Work Phone: Start: 01-05-[address] Lomeli Work Phone: Start: 12-14-[address] Sigifredo Platt Work Phone: Start: 11-13-[address] Grace Platt Work Phone: History of tonsillectomy Hx of tonsillect joseph Dr. John Platt Work Phone: Plan of Treatment Date Care Activity Detail Author CT Chest [facility] Kidney - bilateral and Urinary bladder [facility] Payers Date Payer Category Payer Self-pay [id number] 2024 Unknown [id number] Medicare MEDICARE PART A B [id number] Medicare MEDICARE PART A B [id number] Private Health Insurance [employer] [id number] AULTCARE [id number] Unknown [id number] Unknown [id number] Unknown [id number] Unknown [id number] Unknown [id number] Social History Date Type Detail Facility Start: 10-31-2022 End: 12-26-2022 Tobacco smoking status NHIS Unknown if ever smoked [facility] Start: 02-23-2019 Cigarettes [facility] Start: 1955 Sex Assigned At Male [facility] Start: 01-21-2024 Tobacco smoking stat us NMIS Smokes tobacco daily (finding) [facility] Start: 06-10-2024 Sex Male (finding) [facility] Evaluation note 03-11-2024 Note Date & Type Note Facility 03-11-2024 Evaluation note Diagnosis Onset Date Resolution Lumbar radiculopathy acute [facility] 2023 10:51am Osteoarthritis of lumbar spine acute March 11 024 10:51am Osteoarthritis of right hip acute March 11 10:51am Osteoarthritis of sacroiliac joint acute March 11, 2024 10:51am Tobacco use disorder, continuous acute March 11 024 10:51am Lumbar radiculopathy acute [facility] 2023 12:20pm Osteoarthritis of right hip acute March 31 12:20pm Osteoarthritis of sacroiliac joint acute March 31, 2024 12:20pm Hyperlipidemia acute May 032024 8:29am Low back pain acute May 272024 8:29am Physical exam acute May 272024 8:29am Chronic right hip pain chronic Fe bruary 2024 8:29am [facility] Work Phone: Evaluation note Note Date & Type Note Facility Evaluation note Diagnosis Onset Date Hyperlipidemia acute Tobacco use disorder, continuous acute Chronic cough chronic Chronic right hip pain chron ic [facility] Work Phone: Evaluation note Note Date & Type Note Facility Evaluation note Diagnosis Onset Date Hyperlipidemia acute Tobacco use disorder, continuous acute Chronic cough chronic Chronic right hip pain chron ic Urinary tract infection none active [facility] Work Phone: Evaluation note Note Date & Type Note Facility Evaluation note Diagnosis Onset Date Hyperlipidemia acute Tobacco use disorder, continuous acute Chronic cough chronic Chronic right hip pain chron ic Urinary tract infection none active Air in urine acute UTI (urinary tract infection), bacterial acute [facility] Work Phone: Reason for referral (narrative) Note Date & Type Note Facility Reason for referral (narrative) No reason for referral information available [facility] Work Phone: Summary Purpose Family History No Family History Records Found Relationship Condition Age at Onset Recorded Date/T abhinav mother Anemia Unknown Disorder of intestine Unknown Malignant neoplasm of colon Unknown Hyperlipidemia Unknown father Cardiac disease Unknown grandfather Diabetes mellitus Unknown Advance Directives No Advanced Directives Records Found Advance Directive Response Recorded Date/ Time Living Will Yes February 23, 2:38pm 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 Yes February 23, 2019 2:38pm Advance Directive Response Recorded Date/ Time Living Will Yes December 14, 2022 2:07pm 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 Yes November 2:07pm Advance Directive Response Recorded Date/ Time Living Will Yes December 14, 2022 1:07pm 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 Yes November 1:07pm Chief Complaint and Reason for Visit Chief Complaint PHYSICAL Amb Documentation Reason for Visit Hyperlipidemia Tobacco use disorder, continuous Chronic cough Chronic right hip pain Chief Complaint PHYSICAL Amb Documentation Tobacco use Reason for Visit Hyperlipidemia Tobacco use disorder, continuous Chronic cough Chronic right hip pain Chief Complaint PHYSICAL Amb Documentation Tobacco use Urinary tract infection Reason for Visit Hyperlipidemia Tobacco use disorder, continuous Chronic cough Chronic right hip pain Urinary tract infection Chief Complaint PHYSICAL Amb Documentation Tobacco use Urinary tract infection FOLLOW UP Reason for Visit Hyperlipidemia Tobacco use disorder, continuous Chronic cough Chronic right hip pain Urinary tract infection Air in urine UTI (urinary tract infection), bacterial Chief Complaint PHYSICAL Amb Documentation Tobacco use Urinary tract infection FOLLOW UP Other symptoms and signs involving the genitourina Reason for Visit Hyperlipidemia Tobacco use disorder, continuous Chronic cough Chronic right hip pain Urinary tract infection Air in urine UTI (urinary tract infection), bacterial Chief Complaint PHYSICAL Amb Documentation Tobacco use Urinary tract infection FOLLOW UP Other symptoms and signs involving the genitourina CYSTITIS W/HEMATURIA Reason for Visit Hyperlipidemia Tobacco use disorder, continuous Chronic cough Chronic right hip pain Urinary tract infection Air in urine UTI (urinary tract infection), bacterial Chief Complaint PHYSICAL Amb Documentation Tobacco use Urinary tract infection FOLLOW UP Other symptoms and signs involving the genitourina CYSTITIS W/HEMATURIA Nicotine dependence, unspecified, with unspecified Reason for Visit Hyperlipidemia Tobacco use disorder, continuous Chronic cough Chronic right hip pain Urinary tract infection Air in urine UTI (urinary tract infection), bacterial Chief Complaint Admit Date RIGHT HIP March 11, 2024 10:51am LUMBAR SPINE March 31, 2024 12:20pm RIGHT KNEW PAIN April 13, 2024 1 1:22am yearly physical May 27, 2024 8:29am Reason for Visit Admit Date Lumbar radiculopathy March 11, 2024 10:51am Osteoarthritis of lumbar spine March 11, 2024 10:51am Osteoarthritis of right hip March 10:51am Osteoarthritis of sacroiliac joint Decem 2023 10:51am Tobacco use disorder, continuous Decembe r 2023 10:51am Lumbar radiculopathy March 31, 2024 12:20pm Osteoarthritis of right hip March 12:20pm Osteoarthritis of sacroiliac joint Decem 2023 12:20pm Hyperlipidemia May 27, 2024 8:29am Low back pain May 27, 2024 8:29am Physical exam May 27, 2024 8:29am Chronic right hip pain May 27 8:29am Additional Source Comments (unrecognized sect ion and content) No Status Records FoundNo Status Records Found INFORMATION SOURCE (unrecogn ized section and content) DATE CREATED AUTHOR 09/24/2017 [facility] DATE CREATED AUTHOR AUTHOR'S ORGANIZ ATION 02/07/2025 [facility] Care Teams (unrecognized sec tion and content) Team Status: Active Member Role Status Dates Dr. John Platt , DO Family Provider Active Dr. John Platt , DO Primary Care Provider Active Team Status: Inactive Member Role Status Dates Dr. John Platt , DO Primary Care Pr ovider, Attending Provider, Referring Provider Active Team Status: Active Member Role Status Dates Dr. John Platt , DO Primary Care Provider Active Prema Meadows MA Attending Provider Acti ve Team Status: Inactive Member Role Status Dates Dr. John Platt , DO Primary Care Provider, Attend ing Provider Active Team Status: Inactive Member Role Status Dates Dr. John Platt , DO Primary Care Provider, Referr ing Provider Active DYLAN Nguyen Attending Provider Active Team Status: Inactive Member Role Status Dates Dr. John Platt , DO Primary Care Provider Active Dashawn IRCHARDSON PA Attending Provider Active Team Status: Inactive Member Role Status Dates Dr. John Platt , DO Primary Care Provider Active Dr. Julian Russell MD Attending Provider, Referr ing Provider Active Team Status: Active Member Role Status Dates Dr. John Platt DO Primary Care Provider Active Team Status: Inactive Member Role Status Dates Dr. John Platt DO Primary Care Provider Active Start: March 11, 2024 End: March 11, 2024 Dr. John Platt DO Referring Provider Active Start: March 11, 2024 End: March 11, 2024 Dr. Enoc Davis DO Attending Provider Active Start: March 11, 2024 End: March 11, 2024 Team Status: Inactive Member Role Status Dates Dr. John Platt DO Primary Care Provider Active Start: March 31, 2024 End: March 31, 2024 Dr. John Platt DO Referring Provider Active Start: March 31, 2024 End: March 31, 2024 Dr. Skip Friedman MD Attending Provider Active Start: March 31, 2024 End: March 31, 2024 Team Status: Inactive Member Role Status Dates Dr. John Platt DO Primary Care Provider Active Start: April 13, 2024 End: April 13, 2024 Dr. Micheline Mahan MD Attending Provider Active Start: April 13, 2024 End: April 13, 2024 Dr. Micheline Mahan MD Referring Provider Active Start: April 13, 2024 End: April 13, 2024 Team Status: Inactive Member Role Status Dates Dr. John Platt DO Primary Care Provider Active Start: May 27, 2024 End: May 27, 2024 Dr. John Platt DO Attending Provider Active Start: May 27, 2024 End: May 27, 2024 Dr. John Platt DO Referring Provider Active Start: May 27, 2024 End: May 27, 2024 Goals (unrecognized section and content) Goals may be documented in a n alternate sectionGoals may be documented in an alternate sectionGoals may be documented in an alternate sectionGoals may be documented in an alternate sectionGoals may be documented in an alternate sectionGoals may be documented in an alternate sectionGoals may be documented in an alternate sectionGoals may be documented in an alternate sectionGoals may be documented in an alternate section FOR RECORDS PERTAINING TO PATIENTS WHO ARE OR HAVE BEEN ENROLLED IN A CHEMICAL DEPENDENCY/SUBSTANCEABUSE PROGRAM, SOME INFORMATION MAY BE OMITTED. This clinical summary was aggregated from multiple sources. Caution should be exercised in using it in the provision of clinical care. This summary normalizes information from multiple sources, and as a consequence, information in this document may materially change the coding, format and clinical context of patient data. In addition, data may be omitted in some cases. CLINICAL DECISIONS SHOULD BE BASED ON THE PRIMARY CLINICAL RECORDS. [employer] provides no warranty or guarantee of the accuracy or completeness of information in this document.
== END | disposition home or self-care (01) ==
LOC: CT 12:40
PROVIDERS: PCP Family Medicine; Referring Provider Nurse Practitioner Family; Visit Provider Nurse Practitioner Family
DX: Z12.2 Encounter for screening for malignant neoplasm of respiratory organs (principal); Z87.891 Personal history of nicotine dependence
CPT/HCPCS: 71271